=== PATIENT | female | born 1970 | race Caucasian/White ===

== ENCOUNTER → 2022-06-04 12:28 | Outpatient (CLI) | payer OTHER, SELFPAY ==
[2022-06-04 15:27] LABS: Free T3, Triiodothyronine Free 3.79 pg/mL (2.77-5.27); Free T4, Direct Thyroxine 0.81 ng/dL (0.78-2.19)
[2022-06-04 16:47] LABS: Progesterone, Total 2.59 ng/mL
[2022-06-05 18:39] LABS: Thyroid Stimulating Hormone < 0.015 uIU/mL (0.47-4.68)
[2022-06-09 13:17] LABS: Estradiol <5.0 pg/mL (.); Estriol,Serum <0.1 ng/mL (.); Estrone,Serum 13 pg/mL (.)
== END ==
PROVIDERS: PCP Massage Therapist; Referring Provider Massage Therapist; Visit Provider Massage Therapist
DX: N95.1 Menopausal and female climacteric states (principal); Z79.890 Hormone replacement therapy; E06.3 Autoimmune thyroiditis; G47.00 Insomnia, unspecified; R63.5 Abnormal weight gain
CPT/HCPCS: 36415; 82670; 82677; 82679; 84144; 84439; 84443; 84481

== ENCOUNTER → 2022-08-20 14:43 | Outpatient (CLI) | payer OTHER, SELFPAY ==
--- NOTE | 2022-08-20 15:22 | DI.ECHO.S_ITS ---
Interpretation Summary The ejection fraction is estimated to be 60-65%. Diastolic parameters suggest probable normal left ventricular diastolic function and normal filling pressures. The right ventricle is normal in size and function. There is mild mitral regurgitation. The aortic valve is bicuspid with moderate stenosis. There is mild tricuspid regurgitation. Pulmonary artery pressures cannot be estimated because of the lack of a measurable TR jet velocity. Procedure: A two-dimensional transthoracic echocardiogram with color flow and Doppler was performed. The study quality was technically adequate. There is no prior echocardiogram noted for this patient. The patient was in sinus rhythm with heart rates between 72-85 bpm during the exam. Left Ventricle: The left ventricle is normal in size and wall thickness. The ejection fraction is estimated to be 60-65%. Diastolic parameters suggest probable normal left ventricular diastolic function and normal filling pressures. Right Ventricle: The right ventricle is normal in size and function. Atria: The left atrial size is normal. Right atrial size is normal. There is no Doppler evidence for an interatrial shunt. Mitral Valve: The mitral valve is normal in structure and function. There is mild mitral regurgitation. Aortic Valve: The aortic valve is bicuspid. The aortic valve is moderately calcified. The peak aortic velocity is 3.2 m/sec. The aortic valve mean gradient is 25 mmHg. The calculated aortic valve area is 1.5 cm2. There is moderate aortic stenosis. No aortic regurgitation is present. Tricuspid Valve: The tricuspid valve is normal in structure and function. There is mild tricuspid regurgitation. Pulmonary artery pressures cannot be estimated because of the lack of a measurable TR jet velocity. Pulmonic Valve: The pulmonic valve leaflets are thin and pliable; valve motion is normal. There is trace pulmonic regurgitation. Great Vessels: The aortic root is normal size. The dimensions of the ascending aorta are normal. The IVC is of normal diameter and collapses greater than 50% with a sniff. This suggests a low right atrial pressure of 3 mm Hg. Pericardium/ Pleura There is no pericardial effusion. There is no pleural effusion. MMode/2D Measurements & Calculations LVIDd: 5.2 cm LVOT diam: 2.2 cm LVIDs: 3.2 cm Ao root diam: 3.0 cm FS: 39.1 % asc Aorta Diam: 3.5 cm EPSS: 0.72 cm Ao Arch Diam (Prox Trans): 2.6 cm IVSd: 0.94 cm LVPWd: 0.97 cm LV mishra. diameter/BSA (cm/m^2): 2.5 LV sys. diameter/BSA (cm/m^2): 1.5 LA A2 area: 18.5 cm2 RA long axis: 5.6 cm LA A4 area: 21.7 cm2 RA area: 18.4 cm2 LA length (vol): 5.9 cm RA vol: 51.4 ml LA vol: 57.7 ml RA : 24.3 ml/m2 LA vol index: 27.2 ml/m2 IVC diam: 1.8 cm RVD1 (basal): 3.2 cm RVD2 (mid): 2.9 cm TAPSE: 2.8 cm Doppler Measurements & Calculations Ao V2 max: 324.8 cm/sec LVOT Max Aries: 123.1 cm/sec Ao V2 mean: 216.2 cm/sec LV V1 max P.1 mmHg Ao max P.4 mmHg LV V1 VTI: 25.4 cm Ao mean P.7 mmHg RACHELL(I,D): 1.4 cm2 Ao V2 VTI: 68.4 cm RACHELL(V,D): 1.5 cm2 sev ratio: 0.37 RACHELL indexed to BSA (cm^2/m^2): 0.67 MV E max aries: 89.6 cm/sec PA V2 max: 92.0 cm/sec MV A max aries: 66.2 cm/sec PA V2 mean: 63.5 cm/sec MV E/A: 1.4 PA mean P.8 mmHg Med Peak E' Aries: 8.7 cm/sec PA pr(Accel): 39.6 mmHg E/E' med: 10.4 Lat Peak E' Aries: 11.6 cm/sec E/E' lat: 7.7 E/e' average: 9.0 MV dec time: 0.21 sec SV(LVOT): 97.3 ml Reading Physician:05:09 PM
== END ==
PROVIDERS: PCP Massage Therapist; Referring Provider Internal Medicine Cardiovascular Disease; Visit Provider Internal Medicine Cardiovascular Disease
DX: Q23.1 Congenital insufficiency of aortic valve (principal); I08.1 Rheumatic disorders of both mitral and tricuspid valves
CPT/HCPCS: 93306

== ENCOUNTER → 2022-11-28 09:42 | Outpatient (CLI) | payer OTHER, SELFPAY ==
[2022-11-28 10:58] LABS: Add Manual Diff / Slide Review NO; Basophils Absolute Auto 0 /uL (0-100); Basophils Percent Auto 0.9 % (0-2); Eosinophils Absolute Auto 100 /uL (0-450); Eosinophils Percent Auto 1.9 % (2-4); Hematocrit 39.4 % (36-46); Lymphocytes Absolute Auto 1700 /uL (1100-4500); Lymphocytes Percent Auto 34.8 % (25-40); Mean Corpuscular Hemoglobin 26.7 PG (26-34); Monocytes Absolute Auto 400 /uL (0-900); Monocytes Percent Auto 7.9 % (3-14); Neutrophils Absolute Auto 2600 /uL (1500-7000); Neutrophils Percent Auto 54.5 % (50-75); Platelet Count 280 X10^3/uL (150-400); Red Blood Cell Count 4.86 X10^6/uL (4.0-5.2); White Blood Cell Count 4.8 X10^3/uL (4.5-11.0)
[2022-11-28 11:07] LABS: Hemoglobin A1C% w Est Avg Glu 5.7 % (4.0-6.0)
[2022-11-28 11:31] LABS: Alanine Aminotransferase 35 IU/L (<35); Albumin 4.2 g/dL (3.5-5.0); Albumin Globulin Ratio 1.4 (1.0-2.8); Alkaline Phosphatase 88 U/L (38-126); Aspartate Aminotransferase 29 IU/L (14-36); BUN Creatinine Ratio 26.7 (6-22); Bilirubin Total 0.5 mg/dL (0.2-1.3); Blood Urea Nitrogen 12 mg/dL (7-17); Calcium 9.4 mg/dL (8.4-10.2); Carbon Dioxide 26 mmol/L (22-32); Chloride 105 mmol/L (98-107); Cholesterol 208 mg/dL (140-199); Estimated Glomerular Filt Rate > 60 mL/min (>60); Glucose 110 mg/dL (70-100); HDL Cholesterol 83 mg/dL (40-60); HEMOLYSIS < 15 (0-50); LDL Cholesterol Calculated 113 mg/dL (<100); Potassium 4.8 mmol/L (3.4-5.1); Progesterone, Total 1.23 ng/mL; Sodium 140 mmol/L (137-145); Total Protein 7.2 g/dL (6.3-8.2); Triglycerides 62 mg/dL (35-150)
[2022-11-28 11:47] LABS: Estradiol, Total 29.6 pg/mL
[2022-11-28 11:56] LABS: Iron 68 ug/dL (37-170)
[2022-11-28 12:02] LABS: Cortisol AM (Before 10AM) 4.44 ug/dL (4.46-22.7)
[2022-11-28 12:05] LABS: Percent Iron Saturation 20 % (15-50); Total Iron Binding Capacity 337 ug/dL (265-497)
[2022-11-28 12:06] LABS: Ferritin 102 ng/mL (11-264)
[2022-11-28 12:14] LABS: Free T3, Triiodothyronine Free 7.92 pg/mL (2.77-5.27); Free T4, Direct Thyroxine 0.85 ng/dL (0.78-2.19)
[2022-11-28 12:40] LABS: Thyroid Stimulating Hormone < 0.015 uIU/mL (0.47-4.68)
[2022-11-29 06:36] LABS: Thyroid Peroxidase Antibodies 64 IU/mL (0-34)
== END ==
PROVIDERS: PCP Massage Therapist; Referring Provider Massage Therapist; Visit Provider Massage Therapist
DX: E06.3 Autoimmune thyroiditis (principal); Z79.890 Hormone replacement therapy; Z00.01 Encounter for general adult medical examination with abnormal findings; E83.19 Other disorders of iron metabolism; R73.09 Other abnormal glucose
CPT/HCPCS: 36415; 80053; 80061; 82533; 82670; 82728; 83036; 83090; 83540; 83550; 84144; 84439; 84443; 84481; 85025; 86376

== ENCOUNTER → 2022-12-05 09:16 | Outpatient (CLI) | payer OTHER, SELFPAY ==
--- NOTE | 2022-12-05 09:18 | DI.MG.S_ITS ---
BILATERAL DIGITAL SCREENING MAMMOGRAM 3D/2D WITH CAD: 12/05/2022 CLINICAL: Routine screening. No prior exams were available for comparison. There are scattered areas of fibroglandular density in both breasts (category b / 25%-50% glandular tissue). Current study was also evaluated with a Computer Aided Detection (CAD) system. No significant masses, calcifications, or other findings are seen in either breast. IMPRESSION: NEGATIVE There is no mammographic evidence of malignancy. A 1 year screening mammogram is recommended. Based on the Tyrer Cuzick model (a risk assessment model) the patient's lifetime risk is 10.4% and her 10 year risk is 2.9%. According to the ACR, ACS, and NCCN guidelines, an annual breast MRI exam along with mammogram is recommended if the patient's lifetime risk is 20% or greater. This exam was interpreted at Station ID: [id number]. NOTE: For mammograms, a report in lay terms will be sent to the patient. Approximately 15% of breast malignancies will not be visualized mammographically. In the management of a palpable breast mass, a negative mammogram must not discourage biopsy of a clinically suspicious lesion. Electronically Signed By: Corey coates/aiden:12/07/2022 07:29:03 letter sent: Normal Exam ACR BI-RADS Category 1: Negative [id number]
== END ==
PROVIDERS: PCP Massage Therapist; Referring Provider Physician Assistant Medical; Visit Provider Physician Assistant Medical
DX: Z12.31 Encounter for screening mammogram for malignant neoplasm of breast (principal)
CPT/HCPCS: 77063; 77067

== ENCOUNTER → 2023-12-09 13:42 | Outpatient (CLI) | payer OTHER, SELFPAY ==
--- NOTE | 2023-12-09 13:45 | DI.ECHO.S_ITS ---
[facility]---------+ [facility] +---------+ : : [address] : : : : [id number] : : : : Phone: [phone]+ Echocardiogram Report + + :Name: GABRIELLE WANG Study Date: 12/09/2023 Height: 66 in : :[facility] ReadingLocation: Weight: 211 lb : : Gender: Female BSA: 2.0 m2 : :: 1970 Age: 53 yrs BP: 160/101 mmHg: :Reason For Study: BICUSPID AORTIC VALVE : :Ordering Physician: VANESSA, : :KAMLA Dunlap Performed By: Christine Hooper : :Referring: KAMLA LAMA : + + Interpretation Summary The ejection fraction is estimated to be 60-65%. Diastolic parameters suggest probable normal left ventricular diastolic function and normal filling pressures. The right ventricle is normal in size and function. The aortic valve is bicuspid. There is moderate aortic stenosis. There is mild aortic regurgitation. Pulmonary artery pressures cannot be estimated because of the lack of a measurable TR jet velocity but the IVC suggests a CVP of around 3 mmHg. Compared to the prior study dated 08/20/2022, the aortic valve gradient has increased and RACHELL decreased. Procedure: A two-dimensional transthoracic echocardiogram with color flow and Doppler was performed. The study quality was technically adequate. Comparison is made with the echocardiogram of 08/20/2022. The patient was in sinus rhythm with heart rates between 77-83 bpm during the exam. Left Ventricle: The left ventricle is normal in size and wall thickness. The ejection fraction is estimated to be 60-65%. Diastolic parameters suggest probable normal left ventricular diastolic function and normal filling pressures. Right Ventricle: The right ventricle is normal in size and function. Atria: The left atrial size is normal. Right atrial size is normal. There is no Doppler evidence for an interatrial shunt. Mitral Valve: The mitral valve is normal in structure and function. There is trace mitral regurgitation. Aortic Valve: The aortic valve is bicuspid. The aortic valve is moderately calcified. The peak aortic velocity is 3.6 m/sec. The aortic valve mean gradient is 32 mmHg. The calculated aortic valve area is 1.1 cm2. There is moderate aortic stenosis. There is mild aortic regurgitation. Tricuspid Valve: The tricuspid valve is normal in structure and function. There is trace tricuspid regurgitation. Pulmonary artery pressures cannot be estimated because of the lack of a measurable TR jet velocity but the IVC suggests a CVP of around 3 mmHg. Pulmonic Valve: The pulmonic valve leaflets are thin and pliable; valve motion is normal. There is trace pulmonic regurgitation. Great Vessels: The aortic root is normal size. The dimensions of the ascending aorta are normal. The IVC is of normal diameter and collapses greater than 50% with a sniff. This suggests a low right atrial pressure of 3 mm Hg. Pericardium/ Pleura There is no pericardial effusion. There is no pleural effusion. MMode/2D Measurements & Calculations LVIDd: 4.7 cm LVOT diam: 2.1 cm LVIDs: 3.1 cm Ao root diam: 3.1 cm FS: 33.4 % asc Aorta Diam: 3.0 cm EPSS: 0.55 cm Ao Arch Diam (Prox Trans): 2.6 cm IVSd: 1.1 cm LVPWd: 0.90 cm LV mishra. diameter/BSA (cm/m^2): 2.3 LV sys. diameter/BSA (cm/m^2): 1.5 LA A2 area: 20.1 cm2 RA long axis: 4.8 cm LA A4 area: 16.8 cm2 RA area: 14.6 cm2 LA length (vol): 5.3 cm RA vol: 37.8 ml LA vol: 54.0 ml RA : 18.5 ml/m2 LA vol index: 26.4 ml/m2 IVC diam: 1.8 cm RVD1 (basal): 3.6 cm RVD2 (mid): 2.9 cm TAPSE: 2.5 cm Doppler Measurements & Calculations Ao V2 max: 364.4 cm/sec LVOT Max Aries: 116.7 cm/sec Ao V2 mean: 256.6 cm/sec LV V1 max P.5 mmHg Ao max P.8 mmHg LV V1 VTI: 24.8 cm Ao mean P.1 mmHg RACHELL(I,D): 1.1 cm2 Ao V2 VTI: 78.6 cm RACHELL(V,D): 1.1 cm2 sev ratio: 0.32 RACHELL indexed to BSA (cm^2/m^2): 0.55 MV E max aries: 80.6 cm/sec PA V2 max: 86.1 cm/sec MV A max aries: 79.0 cm/sec PA V2 mean: 60.0 cm/sec MV E/A: 1.0 PA mean P.6 mmHg Med Peak E' Aries: 8.1 cm/sec PA pr(Accel): 37.9 mmHg E/E' med: 10.0 Lat Peak E' Aries: 11.3 cm/sec E/E' lat: 7.1 E/e' average: 8.6 MV dec time: 0.23 sec SV(LVOT): 87.9 ml Reading Physician:04:28 PM
== END ==
PROVIDERS: PCP Massage Therapist; Referring Provider Internal Medicine Cardiovascular Disease; Visit Provider Internal Medicine Cardiovascular Disease
DX: Q23.1 Congenital insufficiency of aortic valve (principal)
CPT/HCPCS: 93306

== ENCOUNTER → 2024-03-16 06:58 | Outpatient (CLI) | payer OTHER, SELFPAY ==
--- NOTE | 2024-03-16 06:59 | DI.US.S_ITS ---
PROCEDURE: US PELVIC COMPLETE INDICATIONS: assess for structural anomaly, new PMB TECHNIQUE: Real-time scanning was performed of the pelvic organs, with image documentation. Additional endovaginal scanning was necessary due to incomplete visualization of the adnexal and endometrial structures by transabdominal scanning. COMPARISON: None. FINDINGS: Uterus: Uterus is anteverted and normal in size at 9.8 x 5.9 x 6.9 cm. The myometrium is heterogeneous. The endometrium measures 4 mm combined thickness. Uterine fibroids including a right anterior subserosal fibroid measuring 3.2 centimeters, a mid posterior intramural fibroid measuring 5.3 centimeters in a left anterior subserosal fibroid measuring 3.2 centimeters. Ovaries: The ovaries are not seen. No adnexal masses. Other: No pathologic free abdominal or pelvic fluid. IMPRESSION: The endometrium is normal in thickness. Leiomyomatous uterus. The ovaries are not seen. We strive to produce accurate, complete, and clear reports of imaging services. To assist us in improving patient care, this report was composed using standard report templates and voice recognition software. Therefore, it may contain abnormal punctuation, insertions and/or omissions. Occasional wrong-word or sound-alike substitutions may occur. Though we review the report and make efforts to correct it, we do recommend that the report be read carefully in proper context to recognize any text inaccuracies. Dictated by: Prashant Alves M.D. on 03/16/2024 at 8:49 Approved by: Prashant Alves M.D. on 03/16/2024 at 8:52
== END ==
LOC: US 06:58
PROVIDERS: PCP Massage Therapist; Referring Provider Obstetrics & Gynecology; Visit Provider Obstetrics & Gynecology
DX: N95.0 Postmenopausal bleeding (principal); D25.1 Intramural leiomyoma of uterus; D25.2 Subserosal leiomyoma of uterus
CPT/HCPCS: 76856

== ENCOUNTER 2024-03-18 22:31 | Inpatient (IN) | payer OTHER, SELFPAY ==
[2024-03-18 22:55] VITALS: BP 147/86; PULSE 116; RESP 16; TEMP 36.9; O2SAT 96; BMI 31.6
[2024-03-18 23:01] LABS: Add Manual Diff / Slide Review NO; Basophils Absolute Auto 0 /uL (0-100); Basophils Percent Auto 0.4 % (0-2); Eosinophils Absolute Auto 200 /uL (0-450); Eosinophils Percent Auto 1.9 % (2-4); Hemoglobin 10.4 g/dL (12.0-16.0); Lymphocytes Absolute Auto 2700 /uL (1100-4500); Lymphocytes Percent Auto 31.3 % (25-40); Mean Corpuscular HGB Conc 34.6 % (30-36); Mean Corpuscular Hemoglobin 27.5 PG (26-34); Mean Corpuscular Volume 79.3 fL (80-100); Monocytes Absolute Auto 800 /uL (0-900); Monocytes Percent Auto 9.2 % (3-14); Neutrophils Absolute Auto 5000 /uL (1500-7000); Neutrophils Percent Auto 57.2 % (50-75); Platelet Count 279 X10^3/uL (150-400); Red Blood Cell Count 3.79 X10^6/uL (4.0-5.2); White Blood Cell Count 8.6 X10^3/uL (4.5-11.0)
[2024-03-18 23:02] LABS: INR 1.1 (0.9-1.3)
[2024-03-18] MEDS: PANTOPRAZOLE 40 MG VIAL 80 MG IV (23:03)
--- NOTE | 2024-03-18 23:03 | ED.GENADULT ---
HPI - General Adult General Chief complaint: Abdominal Pain Stated complaint: bloody diarrhea Time Seen by Provider: 03/18/24 22:43 Source: patient Mode of arrival: Ambulatory Limitations: no limitations History of Present Illness HPI narrative: 53-year-old female. Has a history Sebastien's. Is on thyroid replacement medication. 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 Has also had uterine fibroids removed. Not on anticoagulation although has used anti-inflammatories for the past day or so. Is here for evaluation of less than 8 hours of multiple episodes of bright red blood per rectum. No pain with bowel movements. No abdominal pain. No fevers. No blood in her urine. No vaginal bleeding. No chest pain or shortness of breath. Has not had a colonoscopy in her life up to this point. Related Data Home Medications Medication Instructions Recorded Confirmed cortisol Records Manager PO 05/07/22 10/07/23 estradiol 0.0375 mg/24 hr 1 patch transdermal 2XW 05/07/22 10/07/23 semiweekly transdermal patch (Penny) lactobacillus combination no.9 4 4,000 mmu cells PO DAILY 05/07/22 10/07/23 billion cell capsule (Adult 50 Plus Probiotic) melatonin 3 mg/4 mL oral drops 0.5 mg PO BEDTIME PRN 05/07/22 05/07/22 progesterone micronized 100 mg 100 mg PO QAM 05/07/22 05/07/22 capsule thyroid (pork) 120 mg tablet 120 mg PO DAILY 05/07/22 10/07/23 ([place] Thyroid) thyroid (pork) 15 mg tablet 15 mg PO DAILY 05/07/22 10/07/23 ([place] Thyroid) liothyronine 5 mcg tablet 15 mcg PO DAILY 10/07/23 10/07/23 liothyronine 5 mcg tablet 15 mcg PO DAILY 10/07/23 10/07/23 semaglutide 1 mg/dose (2 mg/1.5 1 mg SUBCUT ONCE 10/07/23 10/07/23 mL) subcutaneous pen injector Allergies Allergy/AdvReac Type Severity Reaction Status Date / Time azithromycin Allergy Swelling Verified 03/08/24 10:43 of Lip/Tongue/Throat Penicillins Allergy Rash Verified 03/08/24 10:43 acetaminophen [From Percocet] AdvReac Severe Difficulty Verified 03/08/24 10:43 Breathing ciprofloxacin [From Cipro] AdvReac Severe Rash Verified 03/08/24 10:43 diltiazem [From Cartia XT] AdvReac Severe swelling Verified 03/08/24 10:43 of hand and feet hydrochlorothiazide AdvReac Severe Abdominal Verified 03/08/24 10:43 Pain oxycodone [From Percocet] AdvReac Severe Difficulty Verified 03/08/24 10:43 Breathing sulfamethoxazole AdvReac Severe GI upset Verified 03/08/24 10:43 [From Bactrim] trimethoprim [From Bactrim] AdvReac Severe GI upset Verified 03/08/24 10:43 losartan AdvReac Cramping Verified 03/08/24 10:43 of the Muscles Review of Systems Review of Systems Narrative: See HPI Patient History Medical History Postmenopausal bleeding ASCUS with positive high risk HPV Sleep apnea 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 Bicuspid aortic valve Social History education level: other (graduate degree, chiropractor) occupational status: employed Smoking Status: Former smoker Smoking Status: Former smoker Exam Initial Vital Signs Initial Vital Signs: Vital Signs Temperature 98.5 F 03/18/24 22:55 Pulse Rate 116 H 03/18/24 22:55 Respiratory Rate 16 03/18/24 22:55 Blood Pressure 147/86 H 03/18/24 22:55 Pulse Oximetry 96 03/18/24 22:55 Oxygen Delivery Method Room Air 03/18/24 22:55 Const General: cooperative, comfortable and No ill appearing [facility] Head: normal to inspection and normocephalic Resp Effort & Inspection: normal respiratory effort Auscultation: clear to auscultation bilaterally Cardio Rate: tachycardic Rhythm: regular rhythm GI Inspection: normal to inspection and non-distended Palpation: soft, No firm, No guarding and No tender Skin General: no rashes or lesions noted Neuro General: patient alert, patient awake, patient oriented x3 and moves all extremities Extrem General: normal to inspection Course Orders Ordered: ED Orders 03/18/24 22:45 GI Panel (Film Array) Stat 03/18/24 22:46 Complete Blood Count AUTO DIFF Stat Comprehensive Metabolic Panel Stat PTT Partial Thromboplastin Duy Stat Prothrombin Time INR Stat 03/18/24 22:50 EKG-12 Lead Stat 03/18/24 23:11 Type and Screen Stat 03/19/24 01:15 Hemoglobin and Hematocrit Stat 03/19/24 01:44 Consult to General Surgery Stat Non-Formulary Medication (Thyroid (Pork) [[place] Thyroid]) 120 mg PO DAILY MITZI Ondansetron HCl (Ondansetron 4 Mg/2 Ml Inj) 4 mg IV NOW PRN PRN Reason: Nausea And Vomiting Ondansetron HCl (Ondansetron 4 Mg Odt) 4 mg SL NOW PRN PRN Reason: Nausea And Vomiting Thyroid (Thyroid, Pork 30 Mg Tablet) 15 mg PO DAILY MITZI Discontinued Medications Pantoprazole Sodium (Pantoprazole 40 Mg Vial) 80 mg IV NOW ONE Stop: 03/18/24 22:51 Last Admin: 03/18/24 23:03 Dose: 80 mg Documented By: EZIO Vital Signs Vital signs: Vital Signs - 8 hr 03/18/24 22:55 03/18/24 23:10 03/18/24 23:30 Temperature 98.5 F Pulse Rate 116 H 91 H Respiratory Rate 16 12 Blood Pressure 147/86 H 133/73 Pulse Oximetry 96 97 Oxygen Delivery Method Room Air 03/18/24 23:30 03/19/24 00:00 03/19/24 00:00 Temperature Pulse Rate 84 85 Respiratory Rate 15 17 Blood Pressure 120/75 Pulse Oximetry 97 98 Oxygen Delivery Method 03/19/24 00:30 03/19/24 01:00 Temperature Pulse Rate 87 90 Respiratory Rate 17 19 Blood Pressure Pulse Oximetry 98 97 Oxygen Delivery Method Medical Decision Making Lab Data Lab results reviewed: Yes I reviewed the patient's lab results. 03/19/24 01:15 03/18/24 22:46 Labs: Lab Results 03/18/24 03/18/24 03/18/24 Range/Units 22:45 22:46 23:11 WBC 8.6 (4.5-11.0) X10^3/uL RBC 3.79 L (4.0-5.2) X10^6/uL Hgb 10.4 L (12.0-16.0) g/dL Hct 30.0 L (36-46) % MCV 79.3 L (80-100) fL MCH 27.5 (26-34) PG MCHC 34.6 (30-36) % RDW 13.0 (11.6-14.8) % Plt Count 279 (150-400) X10^3/uL Neut % (Auto) 57.2 (50-75) % Lymph % (Auto) 31.3 (25-40) % [place] % (Auto) 9.2 (3-14) % Eos % (Auto) 1.9 L (2-4) % Baso % (Auto) 0.4 (0-2) % Neut # (Auto) 5000 (7417-3373) /uL Lymph # (Auto) 2700 (7688-0484) /uL [place] # (Auto) 800 (0-900) /uL Eos # (Auto) 200 (0-450) /uL Baso # (Auto) 0 (0-100) /uL PT 13.0 H (9.4-12.5) SECONDS INR 1.1 (0.9-1.3) APTT 34 (25.1-36.5) SECONDS Sodium 141 (137-145) mmol/L Potassium 4.0 (3.4-5.1) mmol/L Chloride 111 H (98-107) mmol/L Carbon Dioxide 26 (22-32) mmol/L BUN 18 H (7-17) mg/dL Creatinine 0.55 (0.52-1.04) mg/dL Estimated GFR > 60 (>60) mL/min BUN/Creatinine Ratio 32.7 H (6-22) Glucose 132 H (70-100) mg/dL Calcium 8.4 (8.4-10.2) mg/dL Total Bilirubin 0.4 (0.2-1.3) mg/dL AST 20 (14-36) IU/L ALT 19 (<35) IU/L Alkaline Phosphatase 71 (38-126) U/L Total Protein 6.3 (6.3-8.2) g/dL Albumin 3.8 (3.5-5.0) g/dL Globulin 2.5 (1.7-4.1) g/dL Albumin/Globulin Ratio 1.5 (1.0-2.8) Stl C. cayetanensis PCR Not detected (Not Detect) Stool Rotavirus (PCR) Not detected (Not Detect) Stool Adenovirus (PCR) Not detected (Not Detect) Stool Astrovirus (PCR) Not detected (Not Detect) Stool Cryptosporidium PCR Not detected (Not Detect) Stl E.coli Shiga Tox PCR Not detected (Not Detect) St Sh/Enteroin Ecoli PCR Not detected (Not Detect) Stl Enterotoxigenic E PCR Not detected (Not Detect) Stool EPEC (PCR) Not detected (Not Detect) Stl E. histolytica PCR Not detected (Not Detect) Stool Giardia Lamblia PCR Not detected (Not Detect) Stool Sapovirus (PCR) Not detected (Not Detect) Stl P. shigelloides PCR Not detected (Not Detect) St Y.enterocolitica PCR Not detected (Not Detect) Stool Vibrio (PCR) Not detected (Not Detect) Stl Vibrio cholerae PCR Not detected (Not Detect) Stl Enteroaggr Ecoli PCR Not detected (Not Detect) Stl Norovirus GI/GII PCR Not detected (Not Detect) Campylobacter (PCR) Not detected (Not Detect) C. difficile Tox (PCR) Not detected (Not Detect) Salmonella (PCR) Not detected (Not Detect) Blood Type A Negative Antibody Screen Negative 03/19/24 Range/Units 01:15 WBC (4.5-11.0) X10^3/uL RBC (4.0-5.2) X10^6/uL Hgb 8.7 L (12.0-16.0) g/dL Hct 25.0 L (36-46) % MCV (80-100) fL MCH (26-34) PG MCHC (30-36) % RDW (11.6-14.8) % Plt Count (150-400) X10^3/uL Neut % (Auto) (50-75) % Lymph % (Auto) (25-40) % [place] % (Auto) (3-14) % Eos % (Auto) (2-4) % Baso % (Auto) (0-2) % Neut # (Auto) (0767-0271) /uL Lymph # (Auto) (4270-8677) /uL [place] # (Auto) (0-900) /uL Eos # (Auto) (0-450) /uL Baso # (Auto) (0-100) /uL PT (9.4-12.5) SECONDS INR (0.9-1.3) APTT (25.1-36.5) SECONDS Sodium (137-145) mmol/L Potassium (3.4-5.1) mmol/L Chloride (98-107) mmol/L Carbon Dioxide (22-32) mmol/L BUN (7-17) mg/dL Creatinine (0.52-1.04) mg/dL Estimated GFR (>60) mL/min BUN/Creatinine Ratio (6-22) Glucose (70-100) mg/dL Calcium (8.4-10.2) mg/dL Total Bilirubin (0.2-1.3) mg/dL AST (14-36) IU/L ALT (<35) IU/L Alkaline Phosphatase (38-126) U/L Total Protein (6.3-8.2) g/dL Albumin (3.5-5.0) g/dL Globulin (1.7-4.1) g/dL Albumin/Globulin Ratio (1.0-2.8) Stl C. cayetanensis PCR (Not Detect) Stool Rotavirus (PCR) (Not Detect) Stool Adenovirus (PCR) (Not Detect) Stool Astrovirus (PCR) (Not Detect) Stool Cryptosporidium PCR (Not Detect) Stl E.coli Shiga Tox PCR (Not Detect) St Sh/Enteroin Ecoli PCR (Not Detect) Stl Enterotoxigenic E PCR (Not Detect) Stool EPEC (PCR) (Not Detect) Stl E. histolytica PCR (Not Detect) Stool Giardia Lamblia PCR (Not Detect) Stool Sapovirus (PCR) (Not Detect) Stl P. shigelloides PCR (Not Detect) St Y.enterocolitica PCR (Not Detect) Stool Vibrio (PCR) (Not Detect) Stl Vibrio cholerae PCR (Not Detect) Stl Enteroaggr Ecoli PCR (Not Detect) Stl Norovirus GI/GII PCR (Not Detect) Campylobacter (PCR) (Not Detect) C. difficile Tox (PCR) (Not Detect) Salmonella (PCR) (Not Detect) Blood Type Antibody Screen ECG Data Attestation: I personally reviewed and interpreted this ECG as follows: Interpretation: Sinus rhythm Ventricular rate 91 Normal axis Normal QRS Normal QTC No ST T wave changes MDM Narrative Medical decision making narrative: No abdominal pain. Initially tachycardic upon arrival but this is when she exerts herself. She was also very lightheaded. Has had multiple episodes of bright red blood per rectum. Not on anticoagulation. H&H has dropped with a 2 hour repeat. No signs of any infection. Discussed the case with Dr. Gonzalez on-call for General surgery who asked that the patient be admitted to the medicine service and she would consult. Clear liquid diet for now. I then discussed the case with hospitalist on-call who will admit. Discussed the need for admission with the patient who expressed understanding and agreement with plan. Discharge Plan Departure Patient Disposition: Admitted as Observation Clinical Impression: BRBPR (bright red blood per rectum) Admit Date/Time: 03/19/24 01:50 Admit Provider: Nitin Lakhani
[2024-03-18 23:04] LABS: PTT Partial Thromboplastin Tim 34 SECONDS (25.1-36.5)
[2024-03-18 23:06] LABS: Alanine Aminotransferase 19 IU/L (<35); Albumin 3.8 g/dL (3.5-5.0); Albumin Globulin Ratio 1.5 (1.0-2.8); Alkaline Phosphatase 71 U/L (38-126); Aspartate Aminotransferase 20 IU/L (14-36); BUN Creatinine Ratio 32.7 (6-22); Bilirubin Total 0.4 mg/dL (0.2-1.3); Blood Urea Nitrogen 18 mg/dL (7-17); Calcium 8.4 mg/dL (8.4-10.2); Carbon Dioxide 26 mmol/L (22-32); Chloride 111 mmol/L (98-107); Estimated Glomerular Filt Rate > 60 mL/min (>60); Globulin 2.5 g/dL (1.7-4.1); Glucose 132 mg/dL (70-100); HEMOLYSIS < 15 (0-50); Sodium 141 mmol/L (137-145); Total Protein 6.3 g/dL (6.3-8.2)
[2024-03-18 23:10] VITALS: PULSE 91; RESP 12; O2SAT 97
[2024-03-18 23:30] VITALS: BP 133/73; PULSE 84; RESP 15; O2SAT 97
[2024-03-19] VITALS (13 sets, daily range): BP systolic 99–132; BP diastolic 61–80; PULSE 80–105; RESP 16–19; TEMP 36–37; O2SAT 96–98; BMI 31.4
[2024-03-19 00:45] LABS: Adenovirus F 40/41 Not Detected (Not Detect); Astrovirus Not Detected (Not Detect); Campylobacter Not Detected (Not Detect); Clostridium difficile toxin AB Not Detected (Not Detect); Cryptosporidium Not Detected (Not Detect); Cyclospora cayetanensis Not Detected (Not Detect); Entamoeba histolytica Not Detected (Not Detect); Enteroaggregative E.coli Not Detected (Not Detect); Enteropathogenic E.coli Not Detected (Not Detect); Enterotoxigenic E.coli It/st Not Detected (Not Detect); Giardia lamblia Not Detected (Not Detect); Norovirus GI/GII Not Detected (Not Detect); Plesiomonsa shigelloides Not Detected (Not Detect); Rotavirus A Not Detected (Not Detect); Salmonella Not Detected (Not Detect); Sapovirus Not Detected (Not Detect); Shiga-like toxin-prod E.coli Not Detected (Not Detect); Shigella/Enteroinvasive E.coli Not Detected (Not Detect); Vibrio Not Detected (Not Detect); Vibrio cholerae Not Detected (Not Detect); Yersinia enterocolitica Not Detected (Not Detect)
[2024-03-19 01:34] LABS: Hemoglobin 8.7 g/dL (12.0-16.0)
[2024-03-19] MEDS: SODIUM CHLORIDE 0.9% 1,000 ML 100 ML IV ×3 (03:00→23:37)
--- NOTE | 2024-03-19 03:32 | PM.HP.1 ---
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 Reported feeling dizzy and dehydrated. Denies any nausea, vomiting, fever, abdominal pain or dysuria. She was using ibuprofen in the last several days for low back pain and reports some heartburn in the past. Denies any colonoscopy and EGD in the past but scheduled for colonoscopy in June. Laboratory shows WBC 8.6, initial H&H 10.4/30 and 2 hours later 8.7/25, platelets 279, INR 1.1, glucose 132, calcium 8.4, LFT normal. Recent pelvic ultrasound shows leiomyomatosis uterus. Surgery was consulted over the phone and recommended liquid diet and will see the patient in the morning. 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 Bicuspid aortic valve Social History household members: friend(s) education level: other (graduate degree, chiropractor) occupational status: employed Smoking Status: Former smoker Meds Home Medications and Allergies Home Medications Medication Instructions Recorded Confirmed Type estradiol 0.0375 mg/24 hr 1 patch transdermal 2XW 05/07/22 03/19/24 History semiweekly transdermal patch (Penny) melatonin 3 mg/4 mL oral drops 0.5 mg PO BEDTIME PRN insomnia 05/07/22 03/19/24 History progesterone micronized 100 mg 100 mg PO QAM 05/07/22 03/19/24 History capsule thyroid (pork) 120 mg tablet 120 mg PO DAILY 05/07/22 03/19/24 History (Tully Thyroid) thyroid (pork) 15 mg tablet 15 mg PO DAILY 05/07/22 03/19/24 History (Tully Thyroid) liothyronine 5 mcg tablet 15 mcg PO DAILY 10/07/23 03/19/24 History semaglutide 1 mg/dose (2 mg/1.5 1 mg SUBCUT ONCE 10/07/23 03/19/24 History mL) subcutaneous pen injector Allergies Allergy/AdvReac Type Severity Reaction Status Date / Time azithromycin Allergy Swelling Verified 03/08/24 10:43 of Lip/Tongue/Throat Penicillins Allergy Rash Verified 03/08/24 10:43 acetaminophen [From Percocet] AdvReac Severe Difficulty Verified 03/08/24 10:43 Breathing ciprofloxacin [From Cipro] AdvReac Severe Rash Verified 03/08/24 10:43 diltiazem [From Cartia XT] AdvReac Severe swelling Verified 03/08/24 10:43 of hand and feet hydrochlorothiazide AdvReac Severe Abdominal Verified 03/08/24 10:43 Pain oxycodone [From Percocet] AdvReac Severe Difficulty Verified 03/08/24 10:43 Breathing sulfamethoxazole AdvReac Severe GI upset Verified 03/08/24 10:43 [From Bactrim] trimethoprim [From Bactrim] AdvReac Severe GI upset Verified 03/08/24 10:43 losartan AdvReac Cramping Verified 03/08/24 10:43 of the Muscles Review of Systems Review of Systems ROS: Yes All systems reviewed with the patient and are negative except as otherwise documented Constitutional Constitutional: Reports as per HPI and Reports system reviewed and no additional complaints, except as documented Eyes Eyes: Reports as per HPI and Reports system reviewed and no additional complaints, except as documented ENT Ears, Nose, Mouth, and Throat: Yes as per HPI and Yes system reviewed and no additional complaints, except as documented Cardiovascular Cardiovascular: Reports system reviewed and no additional complaints, except as documented Respiratory Respiratory: Reports system reviewed and no additional complaints, except as documented Gastrointestinal Gastrointestinal: Reports system reviewed and no additional complaints, except as documented Genitourinary Genitourinary: Reports system reviewed and no additional complaints, except as documented Musculoskeletal Musculoskeletal: Reports system reviewed and no additional complaints, except as documented Neurologic Neurologic: Reports system reviewed and no additional complaints, except as documented Psychiatric Psychiatric: Reports system reviewed and no additional complaints, except as documented Exam Vital Signs (past 8 hours): - 03/18/24 22:55 03/18/24 23:10 03/18/24 23:30 Temperature 98.5 F Pulse Rate 116 H 91 H Respiratory Rate 16 12 Blood Pressure 147/86 H 133/73 Pulse Oximetry 96 97 Oxygen Delivery Method Room Air Oxygen Flow Rate 03/18/24 23:30 03/19/24 00:00 03/19/24 00:00 Temperature Pulse Rate 84 85 Respiratory Rate 15 17 Blood Pressure 120/75 Pulse Oximetry 97 98 Oxygen Delivery Method Oxygen Flow Rate 03/19/24 00:30 03/19/24 01:00 03/19/24 02:29 Temperature 96.8 F L Pulse Rate 87 90 80 Respiratory Rate 17 19 16 Blood Pressure 107/65 Pulse Oximetry 98 97 98 Oxygen Delivery Method Oxygen Flow Rate 0 03/19/24 03:09 Temperature Pulse Rate Respiratory Rate Blood Pressure Pulse Oximetry Oxygen Delivery Method Room Air Oxygen Flow Rate Oxygen Delivery Method Room Air Oxygen Flow Rate 0 Const General: cooperative, comfortable and well developed Orientation: alert and oriented x3 HENMT Head: normal to inspection, normocephalic and atraumatic Face and sinus: normal facial exam Mouth: oral mucosae normal and moist mucous membranes Throat: posterior oropharynx normal Eyes General: appearance normal, both eyes and all related structures Pupils: PERRL EOM: EOM intact bilaterally Neck Neck: normal visual inspection and full ROM Chest Chest: normal inspection of the chest Resp Effort & Inspection: normal respiratory effort and able to speak in complete sentences Auscultation: clear to auscultation bilaterally Cardio Palpation: normal PMI Rate: regular rate Rhythm: regular rhythm Heart Sounds: S1 normal and S2 normal GI Inspection: normal to inspection Palpation: soft and no hepatosplenomegaly Auscultation: normal bowel sounds Skin General: no rashes or lesions noted Lesions: no lesions Rashes: no rashes Trauma: no lacerations or abrasions Neuro General: patient alert, patient awake, patient oriented x3 and no focal motor deficits Cranial Nerves: CN's II-XI intact bilaterally Cognition: normal cognition Speech: speech normal Gait: normal gait Motor: muscle tone normal throughout Sensory Exam: no sensory deficits noted Extrem General: full ROM and no calf tenderness Psych Appearance: grossly normal Mental Status: mental status grossly normal Speech and Movement: speech and movement normal Objective Labs 03/19/24 01:15 03/18/24 22:46 Labs: Laboratory Results - last 24 hr 03/18/24 03/18/24 03/18/24 22:45 22:46 23:11 WBC 8.6 RBC 3.79 L Hgb 10.4 L Hct 30.0 L MCV 79.3 L MCH 27.5 MCHC 34.6 RDW 13.0 Plt Count 279 Neut % (Auto) 57.2 Lymph % (Auto) 31.3 [place] % (Auto) 9.2 Eos % (Auto) 1.9 L Baso % (Auto) 0.4 Neut # (Auto) 5000 Lymph # (Auto) 2700 [place] # (Auto) 800 Eos # (Auto) 200 Baso # (Auto) 0 PT 13.0 H INR 1.1 APTT 34 Sodium 141 Potassium 4.0 Chloride 111 H Carbon Dioxide 26 BUN 18 H Creatinine 0.55 Estimated GFR > 60 BUN/Creatinine Ratio 32.7 H Glucose 132 H Calcium 8.4 Total Bilirubin 0.4 AST 20 ALT 19 Alkaline Phosphatase 71 Total Protein 6.3 Albumin 3.8 Globulin 2.5 Albumin/Globulin Ratio 1.5 Stl C. cayetanensis PCR Not detected Stool Rotavirus (PCR) Not detected Stool Adenovirus (PCR) Not detected Stool Astrovirus (PCR) Not detected Stool Cryptosporidium PCR Not detected Stl E.coli Shiga Tox PCR Not detected St Sh/Enteroin Ecoli PCR Not detected Stl Enterotoxigenic E PCR Not detected Stool EPEC (PCR) Not detected Stl E. histolytica PCR Not detected Stool Giardia Lamblia PCR Not detected Stool Sapovirus (PCR) Not detected Stl P. shigelloides PCR Not detected St Y.enterocolitica PCR Not detected Stool Vibrio (PCR) Not detected Stl Vibrio cholerae PCR Not detected Stl Enteroaggr Ecoli PCR Not detected Stl Norovirus GI/GII PCR Not detected Campylobacter (PCR) Not detected C. difficile Tox (PCR) Not detected Salmonella (PCR) Not detected Blood Type A Negative Antibody Screen Negative 03/19/24 01:15 WBC RBC Hgb 8.7 L Hct 25.0 L MCV MCH MCHC RDW Plt Count Neut % (Auto) Lymph % (Auto) [place] % (Auto) Eos % (Auto) Baso % (Auto) Neut # (Auto) Lymph # (Auto) [place] # (Auto) Eos # (Auto) Baso # (Auto) PT INR APTT Sodium Potassium Chloride Carbon Dioxide BUN Creatinine Estimated GFR BUN/Creatinine Ratio Glucose Calcium Total Bilirubin AST ALT Alkaline Phosphatase Total Protein Albumin Globulin Albumin/Globulin Ratio Stl C. cayetanensis PCR Stool Rotavirus (PCR) Stool Adenovirus (PCR) Stool Astrovirus (PCR) Stool Cryptosporidium PCR Stl E.coli Shiga Tox PCR St Sh/Enteroin Ecoli PCR Stl Enterotoxigenic E PCR Stool EPEC (PCR) Stl E. histolytica PCR Stool Giardia Lamblia PCR Stool Sapovirus (PCR) Stl P. shigelloides PCR St Y.enterocolitica PCR Stool Vibrio (PCR) Stl Vibrio cholerae PCR Stl Enteroaggr Ecoli PCR Stl Norovirus GI/GII PCR Campylobacter (PCR) C. difficile Tox (PCR) Salmonella (PCR) Blood Type Antibody Screen Assessment & Plan Assessment & Plan narrative: Acute GI bleeding with acute blood loss anemia. -Monitor H and H every 4-6 hours; will transfuse depending on dropping hemoglobin and hematocrit and hemodynamic status. -start Protonix 40 mg IV twice a day. -Keep patient liquid diet -IV fluids, antiemetics as needed -Monitor hemodynamics -Surgery consulted. Endoscopic evaluation of upper GI tract, as well as possibly colonoscopy would be necessary in this patient with high risk of gastrointestinal bleed. -Patient to get off any antiplatelet agent like aspirin, Plavix or NSAIDs. Obstructive apnea. Start BiPAP at night with home settings. Sebastien thyroiditis. Restart thyroid supplement. Time Spent With Patient Time with patient: 50 to 69 minutes with 50% spent counseling/coordinating care Quality VTE Deep Vein Thrombosis/Pulmonary Embolism Present on Admission: No MIPS - Admit I confirm the patient?s Advance Care Plan is present, Code status is documented, Surrogate decision maker is in patient?s record [If Yes, STOP here]: Yes MIPS - Meds 'Current medications' to include all prescriptions, [id number] products, herbals, cannabis/cannabidiol products, and vitamin/mineral/dietary (nutritional) supplements. I have utilized all available resources to obtain, update, or review the patient?s current medications. [If Yes, STOP here]: Yes
[2024-03-19 04:04] LABS: Bacteria Urine None Seen; Culture Indicated Urine Cult Not Indicated; RBC Urine None Seen (0-5/HPF); Squamous Epithelial Cell Urine 0-1 /HPF (0-5/HPF); Urine Volume 10mL (spun); WBC Urine None Seen (0-5/HPF)
[2024-03-19] MEDS: THYROID, PORK 30 MG TABLET 135 MG PO (06:53)
--- NOTE | 2024-03-19 08:06 | P.HP_ITS ---
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 Reported feeling dizzy and dehydrated. Denies any nausea, vomiting, fever, abdominal pain or dysuria. She was using ibuprofen in the last several days for low back pain and reports some heartburn in the past. Denies any colonoscopy and EGD in the past but scheduled for colonoscopy in June. Laboratory shows WBC 8.6, initial H&H 10.4/30 and 2 hours later 8.7/25, platelets 279, INR 1.1, glucose 132, calcium 8.4, LFT normal. Recent pelvic ultrasound shows leiomyomatosis uterus. Surgery was consulted over the phone and recommended liquid diet and will see the patient in the morning. Updates: She was never had rectal bleeding before. She denies abdominal pain. Her bleeding stopped overnight. She did use ibuprofen fairly heavily the last 2 days for her back but this is very uncommon practice for her. No nausea or hematemesis. She was scheduled for her 1st colonoscopy later this year. She was family history of colon polyps. No history of inflammatory bowel disease. She denies any chest pain, shortness and breath. Hemoglobin has remained stable overnight. 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 Bicuspid aortic valve Social History household members: friend(s) education level: other (graduate degree, chiropractor) occupational status: employed Smoking Status: Former smoker Meds Home Medications and Allergies Home Medications Medication Instructions Recorded Confirmed Type estradiol 0.0375 mg/24 hr 1 patch transdermal 2XW 05/07/22 03/19/24 History semiweekly transdermal patch (Penny) melatonin 3 mg/4 mL oral drops 0.5 mg PO BEDTIME PRN insomnia 05/07/22 03/19/24 History progesterone micronized 100 mg 100 mg PO QAM 05/07/22 03/19/24 History capsule thyroid (pork) 120 mg tablet 120 mg PO DAILY 05/07/22 03/19/24 History (Clare Thyroid) thyroid (pork) 15 mg tablet 15 mg PO DAILY 05/07/22 03/19/24 History (Clare Thyroid) liothyronine 5 mcg tablet 15 mcg PO DAILY 10/07/23 03/19/24 History semaglutide 1 mg/dose (2 mg/1.5 1 mg SUBCUT ONCE 10/07/23 03/19/24 History mL) subcutaneous pen injector Allergies Allergy/AdvReac Type Severity Reaction Status Date / Time Penicillins Allergy Mild Rash Verified 03/19/24 10:28 azithromycin Allergy Swelling Verified 03/08/24 10:43 of Lip/Tongue/Throat acetaminophen [From Percocet] AdvReac Severe Difficulty Verified 03/08/24 10:43 Breathing ciprofloxacin [From Cipro] AdvReac Severe Rash Verified 03/08/24 10:43 diltiazem [From Cartia XT] AdvReac Severe swelling Verified 03/08/24 10:43 of hand and feet hydrochlorothiazide AdvReac Severe Abdominal Verified 03/08/24 10:43 Pain oxycodone [From Percocet] AdvReac Severe Difficulty Verified 03/08/24 10:43 Breathing sulfamethoxazole AdvReac Severe GI upset Verified 03/08/24 10:43 [From Bactrim] trimethoprim [From Bactrim] AdvReac Severe GI upset Verified 03/08/24 10:43 losartan AdvReac Cramping Verified 03/08/24 10:43 of the Muscles Review of Systems Review of Systems Narrative: All else reviewed and otherwise unremarkable except as noted in the history and physical. Exam Vital Signs (past 8 hours): - 03/19/24 00:30 03/19/24 01:00 03/19/24 02:29 Temperature 96.8 F L Pulse Rate 87 90 80 Respiratory Rate 17 19 16 Blood Pressure 107/65 Pulse Oximetry 98 97 98 Oxygen Delivery Method Oxygen Flow Rate 0 03/19/24 03:09 03/19/24 05:54 03/19/24 07:39 Temperature 96.8 F L 97.3 F L Pulse Rate 82 85 Respiratory Rate 16 19 Blood Pressure 107/61 99/61 Pulse Oximetry 96 98 Oxygen Delivery Method Room Air Oxygen Flow Rate 0 0 Oxygen Delivery Method Room Air Oxygen Flow Rate 0 Narrative Exam Narrative: NAD, alert and oriented, fluent speech, calm. Normocephalic skull, EOMI, anicteric sclera, symmetric pupils. Oropharynx unremarkable, no droop. Neck supple, midline trachea, no adenopathy. Lungs clear, normal rate and effort. Heart regular, no murmur gallop or rub. Abdomen is soft, non distended and non tender. Extremities are free of edema. Skin is free of rash or lesions. Joints are not swollen or deformed. Judgment appears to be normal. Objective Labs 03/19/24 08:30 03/19/24 08:30 Labs: Laboratory Results - last 24 hr 03/18/24 03/18/24 03/18/24 22:45 22:46 23:11 WBC 8.6 RBC 3.79 L Hgb 10.4 L Hct 30.0 L MCV 79.3 L MCH 27.5 MCHC 34.6 RDW 13.0 Plt Count 279 Neut % (Auto) 57.2 Lymph % (Auto) 31.3 [place] % (Auto) 9.2 Eos % (Auto) 1.9 L Baso % (Auto) 0.4 Neut # (Auto) 5000 Lymph # (Auto) 2700 [place] # (Auto) 800 Eos # (Auto) 200 Baso # (Auto) 0 PT 13.0 H INR 1.1 APTT 34 Sodium 141 Potassium 4.0 Chloride 111 H Carbon Dioxide 26 BUN 18 H Creatinine 0.55 Estimated GFR > 60 BUN/Creatinine Ratio 32.7 H Glucose 132 H Calcium 8.4 Total Bilirubin 0.4 AST 20 ALT 19 Alkaline Phosphatase 71 Total Protein 6.3 Albumin 3.8 Globulin 2.5 Albumin/Globulin Ratio 1.5 Urine RBC Urine WBC Ur Squamous Epith Cells Urine Bacteria Ur Culture Indicated? Vol Urine Centrifuged Stl C. cayetanensis PCR Not detected Stool Rotavirus (PCR) Not detected Stool Adenovirus (PCR) Not detected Stool Astrovirus (PCR) Not detected Stool Cryptosporidium PCR Not detected Stl E.coli Shiga Tox PCR Not detected St Sh/Enteroin Ecoli PCR Not detected Stl Enterotoxigenic E PCR Not detected Stool EPEC (PCR) Not detected Stl E. histolytica PCR Not detected Stool Giardia Lamblia PCR Not detected Stool Sapovirus (PCR) Not detected Stl P. shigelloides PCR Not detected St Y.enterocolitica PCR Not detected Stool Vibrio (PCR) Not detected Stl Vibrio cholerae PCR Not detected Stl Enteroaggr Ecoli PCR Not detected Stl Norovirus GI/GII PCR Not detected Campylobacter (PCR) Not detected C. difficile Tox (PCR) Not detected Salmonella (PCR) Not detected Blood Type A Negative Antibody Screen Negative 03/19/24 03/19/24 01:15 03:32 WBC RBC Hgb 8.7 L Hct 25.0 L MCV MCH MCHC RDW Plt Count Neut % (Auto) Lymph % (Auto) [place] % (Auto) Eos % (Auto) Baso % (Auto) Neut # (Auto) Lymph # (Auto) [place] # (Auto) Eos # (Auto) Baso # (Auto) PT INR APTT Sodium Potassium Chloride Carbon Dioxide BUN Creatinine Estimated GFR BUN/Creatinine Ratio Glucose Calcium Total Bilirubin AST ALT Alkaline Phosphatase Total Protein Albumin Globulin Albumin/Globulin Ratio Urine RBC None seen Urine WBC None seen Ur Squamous Epith Cells 0-1 /hpf Urine Bacteria None seen Ur Culture Indicated? Cult not indicated Vol Urine Centrifuged 10ml (spun) Stl C. cayetanensis PCR Stool Rotavirus (PCR) Stool Adenovirus (PCR) Stool Astrovirus (PCR) Stool Cryptosporidium PCR Stl E.coli Shiga Tox PCR St Sh/Enteroin Ecoli PCR Stl Enterotoxigenic E PCR Stool EPEC (PCR) Stl E. histolytica PCR Stool Giardia Lamblia PCR Stool Sapovirus (PCR) Stl P. shigelloides PCR St Y.enterocolitica PCR Stool Vibrio (PCR) Stl Vibrio cholerae PCR Stl Enteroaggr Ecoli PCR Stl Norovirus GI/GII PCR Campylobacter (PCR) C. difficile Tox (PCR) Salmonella (PCR) Blood Type Antibody Screen Assessment & Plan Assessment & Plan narrative: 1. Acute GI bleeding, present on admission and improved (no recent rectal bleeding today). 2. Acute blood loss anemia, present on admission and active. 3. Obstructive sleep apnea, present on admission stable. 4. Sebastien's thyroiditis, present on admission and stable. PLAN: -clears today, prep for colon and EGD tomorrow. -serial HH, blood as needed -continue Portonix BID Estimated date of discharge is March 19 (after scopes). She remains observation status. Quality VTE Deep Vein Thrombosis/Pulmonary Embolism Present on Admission: No
[2024-03-19 08:39] LABS: Add Manual Diff / Slide Review NO; Basophils Absolute Auto 0 /uL (0-100); Basophils Percent Auto 0.3 % (0-2); Eosinophils Absolute Auto 0 /uL (0-450); Eosinophils Percent Auto 0.1 % (2-4); Hematocrit 23.8 % (36-46); Lymphocytes Absolute Auto 1500 /uL (1100-4500); Lymphocytes Percent Auto 20.3 % (25-40); Mean Corpuscular HGB Conc 33.8 % (30-36); Mean Corpuscular Hemoglobin 27.1 PG (26-34); Monocytes Absolute Auto 400 /uL (0-900); Neutrophils Absolute Auto 5500 /uL (1500-7000); Neutrophils Percent Auto 74.3 % (50-75); Platelet Count 247 X10^3/uL (150-400); Red Blood Cell Count 2.97 X10^6/uL (4.0-5.2); Red Cell Distribution Width 13.2 % (11.6-14.8); White Blood Cell Count 7.4 X10^3/uL (4.5-11.0)
[2024-03-19] MEDS: PANTOPRAZOLE 40 MG VIAL IV ×2 (08:41→20:00)
[2024-03-19 08:58] LABS: Alanine Aminotransferase 15 IU/L (<35); Albumin 2.9 g/dL (3.5-5.0); Albumin Globulin Ratio 1.5 (1.0-2.8); Alkaline Phosphatase 63 U/L (38-126); Aspartate Aminotransferase 16 IU/L (14-36); BUN Creatinine Ratio 41.5 (6-22); Bilirubin Total 0.4 mg/dL (0.2-1.3); Blood Urea Nitrogen 17 mg/dL (7-17); Calcium 7.9 mg/dL (8.4-10.2); Carbon Dioxide 24 mmol/L (22-32); Chloride 113 mmol/L (98-107); Estimated Glomerular Filt Rate > 60 mL/min (>60); Glucose 125 mg/dL (70-100); HEMOLYSIS < 15 (0-50); Potassium 4.1 mmol/L (3.4-5.1); Sodium 137 mmol/L (137-145); Total Protein 4.9 g/dL (6.3-8.2)
--- NOTE | 2024-03-19 10:28 | PM.CALLCOV.1 ---
Call Coverage Note Note Date of Patient Contact: 03/19/24 Narrative of Care Provided: adele bowel prep this afternoon with EGD and colonoscopy tomorrow. Unable to due EGD this morning due to full liquid diet.
[2024-03-19] MEDS: LIOTHYRONINE 5 MCG TABLET 15 MCG PO (10:36)
[2024-03-19 14:05] LABS: Add Manual Diff / Slide Review NO; Basophils Absolute Auto 0 /uL (0-100); Basophils Percent Auto 0.4 % (0-2); Eosinophils Absolute Auto 100 /uL (0-450); Eosinophils Percent Auto 0.9 % (2-4); Hemoglobin 7.1 g/dL (12.0-16.0); Lymphocytes Absolute Auto 1800 /uL (1100-4500); Lymphocytes Percent Auto 30.6 % (25-40); Mean Corpuscular Hemoglobin 27.1 PG (26-34); Mean Corpuscular Volume 79.8 fL (80-100); Monocytes Absolute Auto 400 /uL (0-900); Monocytes Percent Auto 6.7 % (3-14); Neutrophils Absolute Auto 3500 /uL (1500-7000); Neutrophils Percent Auto 61.4 % (50-75); Platelet Count 202 X10^3/uL (150-400); Red Blood Cell Count 2.63 X10^6/uL (4.0-5.2); Red Cell Distribution Width 13.2 % (11.6-14.8); White Blood Cell Count 5.7 X10^3/uL (4.5-11.0)
[2024-03-19] MEDS: PEG3350/SOD SULF,BICARB,CL/KCL 4,000 ML SOLUTION 2000 ML PO (14:13)
--- NOTE | 2024-03-19 15:11 | CM.DANOTE ---
Patient is a 53 yo female who was admitted OBS Status on 03/19/24 today for GI Bleed/Anemia. Pt has REG PPO for insurance and her PCP is Loida Briceno. EMR was reviewed. Per MD, pt with hx of Hashimotos disease and currently on liquid diet while awaiting Surgeon Consult. Per Surgeon, pt to have bowel prep today with plan of upper and lower scope tomorrow Wednesday to determine source of bleed. Per Rn, pt independent and no concerns noted at this time. 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 Pt drives and does not use DME for ambulation. Pt shocked by the GI bleed/anemia and hopeful to get answers about the source of bleed. Pt preference is to discharge home when medically stable and confirms that friend can provide transport at d/c. Plan: SW to follow closely after scope tomorrow to confirm safe plan of home when stable and any further identified discharge planning needs. YOVANY Dash Discharge Planning/Care Management CM Discharge Assessment Start: 03/19/24 15:06 Freq: Status: Active Protocol: Document 03/19/24 15:06 BF (Rec: 03/19/24 15:09 BF [id number]) Discharge Planning Assessment Assigned Disciplinary Hearing Officer YOVANY Mccann DPOA/Assigned Designee Name none Advance Directives? No Advance Directives on File No History Provided By Patient,Medical Record Has Patient been admitted in last 30 No days? Prior Living Arrangements House Household Members friend(s) Type of transporation used prior to Drives own vehicle admit Independent with ADL's Yes Is patient alert and oriented? Yes Caregiver for Another No Barriers to Discharge No Discharge Plan Home Transportation Arrangement local supportive friend Referrals Initiated None needed Additional Comment Pending upper and lower scope tomorrow Whiteboard Updated in Patient Room with Yes name and ext. # of Disciplinary Hearing Officer Review Status In Process Please Provide Date Initial DC 03/19/24 Assessment Was Performed Next Review Type Continued Stay Review
[2024-03-19 19:40] LABS: Add Manual Diff / Slide Review NO; Basophils Absolute Auto 0 /uL (0-100); Basophils Percent Auto 0.6 % (0-2); Eosinophils Absolute Auto 100 /uL (0-450); Hemoglobin 7.1 g/dL (12.0-16.0); Lymphocytes Absolute Auto 2000 /uL (1100-4500); Lymphocytes Percent Auto 39.2 % (25-40); Mean Corpuscular HGB Conc 34.5 % (30-36); Mean Corpuscular Hemoglobin 27.5 PG (26-34); Mean Corpuscular Volume 79.8 fL (80-100); Monocytes Absolute Auto 400 /uL (0-900); Monocytes Percent Auto 7.1 % (3-14); Neutrophils Absolute Auto 2600 /uL (1500-7000); Neutrophils Percent Auto 52.1 % (50-75); Platelet Count 192 X10^3/uL (150-400); Red Blood Cell Count 2.56 X10^6/uL (4.0-5.2); Red Cell Distribution Width 13.3 % (11.6-14.8); White Blood Cell Count 5.1 X10^3/uL (4.5-11.0)
[2024-03-19 19:43] LABS: Hematocrit 20.4 % (36-46)
[2024-03-20] VITALS (13 sets, daily range): BP systolic 117–157; BP diastolic 73–87; PULSE 79–102; RESP 12–19; TEMP 36.2–36.9; O2SAT 94–100
[2024-03-20 04:44] LABS: Add Manual Diff / Slide Review NO; Basophils Absolute Auto 0 /uL (0-100); Basophils Percent Auto 0.7 % (0-2); Eosinophils Absolute Auto 100 /uL (0-450); Eosinophils Percent Auto 1.9 % (2-4); Hematocrit 21.7 % (36-46); Hemoglobin 7.6 g/dL (12.0-16.0); Lymphocytes Absolute Auto 2200 /uL (1100-4500); Lymphocytes Percent Auto 49.3 % (25-40); Monocytes Absolute Auto 300 /uL (0-900); Monocytes Percent Auto 6.4 % (3-14); Neutrophils Absolute Auto 1900 /uL (1500-7000); Neutrophils Percent Auto 41.7 % (50-75); Platelet Count 175 X10^3/uL (150-400); Red Blood Cell Count 2.71 X10^6/uL (4.0-5.2); Red Cell Distribution Width 13.8 % (11.6-14.8); White Blood Cell Count 4.5 X10^3/uL (4.5-11.0)
[2024-03-20 04:56] LABS: Alanine Aminotransferase 13 IU/L (<35); Albumin 2.7 g/dL (3.5-5.0); Albumin Globulin Ratio 1.4 (1.0-2.8); Alkaline Phosphatase 54 U/L (38-126); Aspartate Aminotransferase 15 IU/L (14-36); BUN Creatinine Ratio 22.2 (6-22); Bilirubin Total 0.5 mg/dL (0.2-1.3); Blood Urea Nitrogen 10 mg/dL (7-17); Calcium 7.7 mg/dL (8.4-10.2); Carbon Dioxide 24 mmol/L (22-32); Chloride 115 mmol/L (98-107); Estimated Glomerular Filt Rate > 60 mL/min (>60); Glucose 89 mg/dL (70-100); HEMOLYSIS < 15 (0-50); Potassium 3.6 mmol/L (3.4-5.1); Sodium 139 mmol/L (137-145); Total Protein 4.7 g/dL (6.3-8.2)
--- NOTE | 2024-03-20 05:54 | CM.MNRNOTE ---
Pt requesting to have her morning meds held until she gets done with res procedure today.
[2024-03-20] MEDS: PANTOPRAZOLE 40 MG VIAL IV ×2 (08:25→20:05)
[2024-03-20] MEDS: SODIUM CHLORIDE 0.9% 1,000 ML 100 ML IV (09:04)
[2024-03-20] MEDS: LACTATED RINGERS 1,000 ML 42 ML IV (13:28)
--- NOTE | 2024-03-20 14:00 | P.HP_ITS ---
History of Present Illness History of Present Illness Date Patient Seen: 03/20/24 Time Patient Seen: 14:00 Chief complaint: bloody diarrhea Narrative: Severe anemia with bloody diarrhea. Has never had colonoscopy. No family history for GI cancers. 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 Bicuspid aortic valve Social History household members: friend(s) education level: other (graduate degree, chiropractor) occupational status: employed Smoking Status: Former smoker alcohol intake: current Meds Home Medications and Allergies Home Medications Medication Instructions Recorded Confirmed Type estradiol 0.0375 mg/24 hr 1 patch transdermal 2XW 05/07/22 03/19/24 History semiweekly transdermal patch (Penny) melatonin 3 mg/4 mL oral drops 0.5 mg PO BEDTIME PRN insomnia 05/07/22 03/19/24 History progesterone micronized 100 mg 100 mg PO QAM 05/07/22 03/19/24 History capsule thyroid (pork) 120 mg tablet 120 mg PO DAILY 05/07/22 03/19/24 History ([place] Thyroid) thyroid (pork) 15 mg tablet 15 mg PO DAILY 05/07/22 03/19/24 History ([place] Thyroid) liothyronine 5 mcg tablet 15 mcg PO DAILY 10/07/23 03/19/24 History semaglutide 1 mg/dose (2 mg/1.5 1 mg SUBCUT ONCE 10/07/23 03/20/24 History mL) subcutaneous pen injector Allergies Allergy/AdvReac Type Severity Reaction Status Date / Time Penicillins Allergy Mild Rash Verified 03/20/24 13:23 azithromycin Allergy Swelling Verified 03/20/24 13:23 of Lip/Tongue/Throat ciprofloxacin [From Cipro] AdvReac Severe Rash Verified 03/20/24 13:23 diltiazem [From Cartia XT] AdvReac Severe swelling Verified 03/20/24 13:23 of hand and feet hydrochlorothiazide AdvReac Severe Abdominal Verified 03/20/24 13:23 Pain oxycodone [From Percocet] AdvReac Severe Difficulty Verified 03/20/24 13:23 Breathing sulfamethoxazole AdvReac Severe GI upset Verified 03/20/24 13:23 [From Bactrim] trimethoprim [From Bactrim] AdvReac Severe GI upset Verified 03/20/24 13:23 losartan AdvReac Cramping Verified 03/20/24 13:23 of the Muscles Review of Systems Review of Systems ROS: Yes All systems reviewed with the patient and are negative except as otherwise documented Exam Vital Signs (past 8 hours): - 03/20/24 08:00 03/20/24 12:00 03/20/24 13:15 Temperature 97.6 F 97.4 F L 98.2 F Pulse Rate 79 80 85 Respiratory Rate 15 16 16 Blood Pressure 141/81 H 143/79 H 138/84 Pulse Oximetry 97 98 98 Oxygen Delivery Method Room Air Oxygen Flow Rate 0 0 Oxygen Delivery Method Room Air Oxygen Flow Rate 0 Const General: cooperative, healthy appearing and comfortable [facility] Head: normocephalic and atraumatic Ears: hearing grossly normal bilaterally Eyes General: appearance normal, both eyes and all related structures Sclera: sclerae normal Neck Neck: trachea midline and No JVD Resp Effort & Inspection: normal respiratory effort and able to speak in complete sentences Cardio Rate: regular rate Rhythm: regular rhythm GI Palpation: soft and No tender Skin General: No atrophy and pallor Neuro General: patient alert, patient awake and patient oriented x3 Cognition: normal cognition Psych Mental Status: mental status grossly normal Attitude: cooperative Judgment: judgment good Objective Labs 03/20/24 04:29 03/20/24 04:29 Labs: Laboratory Results - last 24 hr 03/18/24 03/19/24 03/19/24 23:11 14:00 19:20 WBC 5.7 5.1 RBC 2.63 L 2.56 L Hgb 7.1 L 7.1 L Hct 21.0 L 20.4 L* MCV 79.8 L 79.8 L MCH 27.1 27.5 MCHC 34.0 34.5 RDW 13.2 13.3 Plt Count 202 192 Neut % (Auto) 61.4 52.1 Lymph % (Auto) 30.6 39.2 [place] % (Auto) 6.7 7.1 Eos % (Auto) 0.9 L 1.0 L Baso % (Auto) 0.4 0.6 Neut # (Auto) 3500 2600 Lymph # (Auto) 1800 2000 [place] # (Auto) 400 400 Eos # (Auto) 100 100 Baso # (Auto) 0 0 Sodium Potassium Chloride Carbon Dioxide BUN Creatinine Estimated GFR BUN/Creatinine Ratio Glucose Calcium Total Bilirubin AST ALT Alkaline Phosphatase Total Protein Albumin Globulin Albumin/Globulin Ratio Blood Type A Negative Antibody Screen Negative Crossmatch See Detail 03/19/24 03/20/24 19:40 04:29 WBC 4.5 RBC 2.71 L Hgb 7.6 L Hct 21.7 L MCV 80.0 MCH 28.0 MCHC 35.0 RDW 13.8 Plt Count 175 Neut % (Auto) 41.7 L Lymph % (Auto) 49.3 H [place] % (Auto) 6.4 Eos % (Auto) 1.9 L Baso % (Auto) 0.7 Neut # (Auto) 1900 Lymph # (Auto) 2200 [place] # (Auto) 300 Eos # (Auto) 100 Baso # (Auto) 0 Sodium 139 Potassium 3.6 Chloride 115 H Carbon Dioxide 24 BUN 10 Creatinine 0.45 L Estimated GFR > 60 BUN/Creatinine Ratio 22.2 H Glucose 89 Calcium 7.7 L Total Bilirubin 0.5 AST 15 ALT 13 Alkaline Phosphatase 54 Total Protein 4.7 L Albumin 2.7 L Globulin 2.0 Albumin/Globulin Ratio 1.4 Blood Type A Negative Antibody Screen Negative Crossmatch See Detail Assessment & Plan Assessment & Plan narrative: GI bleed with anemia requiring transfusion Plan: EGD and colonoscopy with anesthesia Time Spent With Patient Time with patient: less than 30 minutes Quality VTE Deep Vein Thrombosis/Pulmonary Embolism Present on Admission: No
--- NOTE | 2024-03-20 14:39 | DI.CT.S_ITS ---
PROCEDURE: CT ABDOMEN PELVIS W CON INDICATIONS: bloody diarrhea. TECHNIQUE: After the administration of intravenous contrast, axial sections acquired from the lung bases to the pubic symphysis. Coronal and sagittal reformats were performed. For radiation dose reduction, the following was used: automated exposure control, adjustment of mA and/or kV according to patient size. COMPARISON: None. FINDINGS: Image quality: Diagnostic. Lower Chest: No significant findings. ABDOMEN: Liver: No solid mass. Gallbladder: Multiple rim calcified gallstones noted in the gallbladder without wall thickening. No pericholecystic inflammation. Biliary ducts: No biliary dilation. Pancreas: No ductal dilation. No peripancreatic inflammation Spleen: Size is within normal limits. Adrenal Glands: No adrenal nodules. Kidneys and Ureters: No hydronephrosis. No solid mass. No complex renal cystic lesion which requires follow up. Nonobstructing 3 mm right intrarenal calculus. No perinephric stranding. Bilateral ureters are normal in course and caliber. Mild patchy Stomach and Bowel: Normal colonic caliber, without significant wall thickening. Scattered colonic diverticulosis without acute diverticulitis. Normal appendix. Scattered fluid-filled loops of colon and distal small bowel. Oral contrast opacifies bowel to level of the distal small bowel. Peritoneum: No abnormal intraperitoneal fluid. No free air. Ventral Wall: There is a fat-containing umbilical hernia without acute inflammation. Abdominal Nodes: No retroperitoneal or mesenteric adenopathy by size criteria. Vessels: Aorta and inferior vena cava are normal in size. PELVIS: Pelvic Organs: Prominent, heterogeneous and lobular appearance of the uterus likely related to fibroids. Bilateral Essure occlusion devices are present. Bladder: No bladder wall thickening, accounting for underdistention. Pelvic Nodes: No enlarged lymph nodes. Miscellaneous: No inguinal hernias are seen. Bones: No aggressive osseous abnormality. Visualized osseous structures appear intact without acute fracture or focal destructive lesion. No acute compression fractures of the imaged spine. IMPRESSION: 1. CT abdomen and pelvis without acute abnormalities to explain patient's history of bloody diarrhea. However, gastroenteritis not excluded given fluid-filled loops of distal small bowel. There is no significant wall thickening or inflammatory changes within the visualized bowel. 2. Cholelithiasis without CT evidence for acute cholecystitis. 3. Colonic diverticulosis without acute diverticulitis. 4. Normal appendix. 5. Prominent, heterogeneous and lobulated appearance of the uterus, likely related to fibroids. Other chronic findings as above. Dictated by: Corey Bender M.D. on 03/20/2024 at 17:11 Approved by: Corey Bender M.D. on 03/20/2024 at 17:25
--- NOTE | 2024-03-20 14:44 | PM.OP.EC ---
Operative Date/Time/Diagnoses Date of procedure: 03/20/24 Time of procedure: 14:44 Pre-op diagnosis: Bloody diarrhea, severe anemia Post-op diagnosis: same Procedure & Clinicians Study performed: EGD and colonoscopy with anesthesia Same procedure as scheduled: Yes Indications: Bloody diarrhea with severe anemia Surgeon: Adri Gonzalez Procedure Notes Procedure in detail: Preop diagnosis bloody diarrhea with severe anemia Postop diagnosis: Same Procedure: EGD and colonoscopy with anesthesia Surgeon: Cristy Gonzalez MD Findings: No real bleeding source. She did have colonic diverticulosis predominantly in the descending colon. Scant small diverticuli of the right colon. Poor bowel prep so that smaller polyps could have been overlooked. Procedure: Patient placed in a lateral position. Anesthetic was provided. Beginning with the upper scope. Scope inserted into the esophagus advanced into the stomach and identified the pylorus. Intubated into duodenal and advanced into the 2nd a portion duodenal without evidence of duodenitis or ulcerations and no reflux of what is clearly an active low-grade bleeding. Retraction into the stomach including a retroflex also showed a normal stomach. Normal esophagus. Patient was sponge so that we could proceed with the colonoscopy. Rectal exam shows normal tone no masses. Scope was inserted into the rectum and advanced to ileocecal valve with minimal difficulty. Insufflation extraction scope and the above findings. I identified diverticulosis that is severe and small to moderate sizing of the descending colon. Scattered small diverticuli of the right colon. Bleeding source again not identified. Blood coming through the TI. Retroflex was included in this procedure as well. Impression: No bleeding source identified in the upper GI tract or the colon. Possible etiologies or inflammatory bowel disease, hemorrhagic enteritis, or angiodysplasia. Plan: Clear liquid diet. CT scan abdomen and pelvis with p.o. and IV contrast. Results texted to Dr. Cardenas. Findings: diverticulosis Specimen(s): none sent Complications: none Post-procedure Recommendations: Colonscopy in 5 years Follow up: as needed Disposition: PACU
--- NOTE | 2024-03-20 16:05 | CM.DPC ---
DCP Cont: Per Surgeon, pt to have upper and lower scope this afternoon and pending results will determine when pt may be stable for discharge. Per RN, pt has remained independent in room and no concerns at this time. Pt off floor for scopes. Plan: SW to follow closely for scope results to determine any discharge planning needs and if safe for return home with roommate/friend. YOVANY Dash
[2024-03-20 16:15] LABS: Hematocrit 24.1 % (36-46); Hemoglobin 8.3 g/dL (12.0-16.0)
--- NOTE | 2024-03-20 16:50 | PM.PN.1 ---
Subjective Subjective Interval history: She was hanging in there. No abdominal pain. No nausea. Her hemoglobin is slightly up from her morning hemoglobin. She received 1 unit of blood yesterday. EGD today was unremarkable and colonoscopy was unremarkable other than some blood-tinged drainage into the colon. Dr. Gonzalez ordered a CT of the abdomen and pelvis which again is fairly unremarkable. She was passing a small amount of clear liquid with blood tinging. Exam Vital Signs (past 8 hours): - 03/20/24 12:00 03/20/24 13:15 03/20/24 14:43 Temperature 97.4 F L 98.2 F 98.5 F Pulse Rate 80 85 100 H Respiratory Rate 16 16 19 Blood Pressure 143/79 H 138/84 117/73 Pulse Oximetry 98 98 95 Oxygen Delivery Method Room Air Room Air Oxygen Flow Rate 0 0 03/20/24 14:48 03/20/24 14:54 03/20/24 15:00 Temperature Pulse Rate 102 H 97 H 91 H Respiratory Rate 16 16 12 Blood Pressure 127/82 134/80 130/83 Pulse Oximetry 95 94 94 Oxygen Delivery Method Room Air Room Air Room Air Oxygen Flow Rate 0 0 0 03/20/24 15:15 03/20/24 16:00 03/20/24 16:00 Temperature 97.1 F L Pulse Rate 87 85 85 Respiratory Rate 16 16 16 Blood Pressure 145/87 H 157/87 H 157/87 H Pulse Oximetry 98 99 99 Oxygen Delivery Method Oxygen Flow Rate 0 0 0 Oxygen Delivery Method Room Air Oxygen Flow Rate 0 Narrative Exam Narrative: NAD, alert and oriented. Fluent speech. Lungs are clear, normal rate and effort. Heart is regular, 3/6 systolic murmur, and no gallop or rub. Abdomen is soft, non distended. Extremities are free of edema. Objective Labs 03/20/24 15:46 03/20/24 04:29 Labs: Laboratory Results - last 24 hr 03/18/24 03/19/24 03/19/24 23:11 19:20 19:40 WBC 5.1 RBC 2.56 L Hgb 7.1 L Hct 20.4 L* MCV 79.8 L MCH 27.5 MCHC 34.5 RDW 13.3 Plt Count 192 Neut % (Auto) 52.1 Lymph % (Auto) 39.2 [place] % (Auto) 7.1 Eos % (Auto) 1.0 L Baso % (Auto) 0.6 Neut # (Auto) 2600 Lymph # (Auto) 2000 [place] # (Auto) 400 Eos # (Auto) 100 Baso # (Auto) 0 Sodium Potassium Chloride Carbon Dioxide BUN Creatinine Estimated GFR BUN/Creatinine Ratio Glucose Calcium Total Bilirubin AST ALT Alkaline Phosphatase Total Protein Albumin Globulin Albumin/Globulin Ratio Blood Type A Negative A Negative Antibody Screen Negative Negative Crossmatch See Detail See Detail 03/20/24 03/20/24 04:29 15:46 WBC 4.5 RBC 2.71 L Hgb 7.6 L 8.3 L Hct 21.7 L 24.1 L MCV 80.0 MCH 28.0 MCHC 35.0 RDW 13.8 Plt Count 175 Neut % (Auto) 41.7 L Lymph % (Auto) 49.3 H [place] % (Auto) 6.4 Eos % (Auto) 1.9 L Baso % (Auto) 0.7 Neut # (Auto) 1900 Lymph # (Auto) 2200 [place] # (Auto) 300 Eos # (Auto) 100 Baso # (Auto) 0 Sodium 139 Potassium 3.6 Chloride 115 H Carbon Dioxide 24 BUN 10 Creatinine 0.45 L Estimated GFR > 60 BUN/Creatinine Ratio 22.2 H Glucose 89 Calcium 7.7 L Total Bilirubin 0.5 AST 15 ALT 13 Alkaline Phosphatase 54 Total Protein 4.7 L Albumin 2.7 L Globulin 2.0 Albumin/Globulin Ratio 1.4 Blood Type Antibody Screen Crossmatch COUNT INCLUDES THE [facility] Medical History Postmenopausal bleeding ASCUS with positive high risk HPV Sleep apnea 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 Acute GI bleeding, present on admission and improved (no recent rectal bleeding today). 2. Acute blood loss anemia, present on admission and active. 3. Obstructive sleep apnea, present on admission stable. 4. Sebastien's thyroiditis, present on admission and stable. 5. Bicuspid aortic valve with systolic murmur, present on admission and stable. Plan: -Clear liqs tonight and a hemoglobin at 11:00 p.m. and 5:00 a.m.. Blood transfusion if she hits threshold of 7 or 21. If she appears to have ongoing blood loss she may require transfer to [facility] for an angiogram and further evaluation with Gastroenterology and Interventional Radiology. I explained this to her and she understands the plan is in agreement with the plan. Quality VTE Deep Vein Thrombosis/Pulmonary Embolism Present on Admission: No
[2024-03-20] MEDS: LIOTHYRONINE 5 MCG TABLET 15 MCG PO (17:10)
[2024-03-20] MEDS: THYROID, PORK 30 MG TABLET 135 MG PO (17:10)
[2024-03-20 23:31] LABS: Hemoglobin 7.1 g/dL (12.0-16.0)
[2024-03-20 23:52] LABS: Hematocrit 20.2 % (36-46)
[2024-03-21] VITALS (10 sets, daily range): BP systolic 121–141; BP diastolic 79–85; PULSE 81–114; RESP 16–18; TEMP 35.7–36.9; O2SAT 97–99
[2024-03-21] MEDS: SODIUM CHLORIDE 0.9% 1,000 ML 100 ML IV (01:48)
[2024-03-21] MEDS: LIOTHYRONINE 5 MCG TABLET 15 MCG PO (05:42)
[2024-03-21] MEDS: THYROID, PORK 30 MG TABLET 135 MG PO (05:43)
[2024-03-21 05:52] LABS: Hemoglobin 7.1 g/dL (12.0-16.0)
[2024-03-21 06:16] LABS: Hematocrit 20.2 % (36-46)
[2024-03-21 06:28] LABS: Alanine Aminotransferase 12 IU/L (<35); Albumin 2.8 g/dL (3.5-5.0); Albumin Globulin Ratio 1.4 (1.0-2.8); Alkaline Phosphatase 55 U/L (38-126); Aspartate Aminotransferase 16 IU/L (14-36); BUN Creatinine Ratio 11.9 (6-22); Bilirubin Total 0.4 mg/dL (0.2-1.3); Blood Urea Nitrogen 5 mg/dL (7-17); Calcium 7.9 mg/dL (8.4-10.2); Carbon Dioxide 27 mmol/L (22-32); Chloride 112 mmol/L (98-107); Estimated Glomerular Filt Rate > 60 mL/min (>60); Glucose 89 mg/dL (70-100); HEMOLYSIS < 15 (0-50); Potassium 3.4 mmol/L (3.4-5.1); Sodium 140 mmol/L (137-145); Total Protein 4.8 g/dL (6.3-8.2)
[2024-03-21] MEDS: PANTOPRAZOLE 40 MG VIAL IV ×2 (08:25→20:23)
--- NOTE | 2024-03-21 10:56 | CM.DPC ---
DCP Cont. Reviewed EMR and team rounds for status updates. Pt's H&H remains critically low. She is being monitored closely for possible transfer to [facility] if her blood levels don't improve with current interventions.
[2024-03-21 13:40] LABS: Magnesium 1.9 mg/dL (1.6-2.3)
[2024-03-21 13:43] LABS: C-Reactive Protein Quant < 0.5 mg/dL (<1.0)
--- NOTE | 2024-03-21 13:52 | PM.PN.1 ---
Subjective Subjective Interval history: Patient's bloody diarrhea has slowed down she says. Had none overnight and one small amount of blood this morning. She tells me she had a caramel apple [place] the carnival 4 hours before her symptoms started, but she didn't think much of it. Hgb unchanged at 7.1 this morning. 1 unit PRBC ordered. Exam Vital Signs (past 8 hours): - 03/21/24 09:00 03/21/24 10:42 03/21/24 11:00 Temperature 96.3 F L 97.2 F L 97.2 F L Pulse Rate 87 92 H 87 Respiratory Rate 16 16 16 Blood Pressure 137/85 135/80 135/80 Pulse Oximetry 98 99 Oxygen Flow Rate 0 0 03/21/24 11:20 03/21/24 11:40 03/21/24 13:51 Temperature 98.1 F 98.1 F 96.5 F L Pulse Rate 91 H 94 H 114 H Respiratory Rate 16 16 16 Blood Pressure 141/85 H 141/85 H 121/81 Pulse Oximetry 99 Oxygen Flow Rate 0 Oxygen Delivery Method Room Air Oxygen Flow Rate 0 Narrative Exam Narrative: NAD, alert and oriented. Fluent speech. Lungs are clear, normal rate and effort. Heart is regular, 3/6 systolic murmur, and no gallop or rub. Abdomen is soft, non distended. Extremities are free of edema. Objective Labs 03/21/24 04:59 03/21/24 04:59 Labs: Laboratory Results - last 24 hr 03/19/24 03/20/24 03/20/24 19:40 15:46 23:09 Hgb 8.3 L 7.1 L Hct 24.1 L 20.2 L* Sodium Potassium Chloride Carbon Dioxide BUN Creatinine Estimated GFR BUN/Creatinine Ratio Glucose Calcium Magnesium Total Bilirubin AST ALT Alkaline Phosphatase C-Reactive Protein Total Protein Albumin Globulin Albumin/Globulin Ratio Blood Type A Negative Antibody Screen Negative Crossmatch See Detail 03/21/24 03/21/24 04:59 12:25 Hgb 7.1 L Hct 20.2 L* Sodium 140 Potassium 3.4 Chloride 112 H Carbon Dioxide 27 BUN 5 L Creatinine 0.42 L Estimated GFR > 60 BUN/Creatinine Ratio 11.9 Glucose 89 Calcium 7.9 L Magnesium 1.9 Total Bilirubin 0.4 AST 16 ALT 12 Alkaline Phosphatase 55 C-Reactive Protein < 0.5 Total Protein 4.8 L Albumin 2.8 L Globulin 2.0 Albumin/Globulin Ratio 1.4 Blood Type Antibody Screen Crossmatch [facility] Medical History Postmenopausal bleeding ASCUS with positive high risk HPV Sleep apnea 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 Acute GI bleeding, present on admission and improving. CT abd consistent with gastroenteritis. EGD and colonoscopy negative. 2. Acute blood loss anemia, present on admission and active. 3. Obstructive sleep apnea, present on admission stable. 4. Sebastien's thyroiditis, present on admission and stable. 5. Bicuspid aortic valve with systolic murmur, present on admission and stable. Plan: -give 1 unit PRBC -check CRP, ESR and calprotectin for possible IBD -patient ate caramel apple which may have harbored bacteria causing gastroenteritis. -monitor Hgb Dispo: Home on 03/22 if Hgb stable and no further rectal bleeding. Quality VTE Deep Vein Thrombosis/Pulmonary Embolism Present on Admission: No
[2024-03-21 15:25] LABS: Hemoglobin 8.4 g/dL (12.0-16.0)
[2024-03-21 15:48] LABS: Erythrocyte Sedimentation Rate 33 MM/HR (0-20)
[2024-03-21 18:00] LABS: Hemoglobin 8.3 g/dL (12.0-16.0)
[2024-03-22 00:37] LABS: Hemoglobin 7.9 g/dL (12.0-16.0)
[2024-03-22 04:25] VITALS: BP 119/45; PULSE 69; RESP 16; TEMP 36.6; O2SAT 98
[2024-03-22 05:24] LABS: Add Manual Diff / Slide Review NO; Basophils Absolute Auto 0 /uL (0-100); Basophils Percent Auto 0.7 % (0-2); Eosinophils Absolute Auto 100 /uL (0-450); Hematocrit 22.7 % (36-46); Lymphocytes Absolute Auto 1600 /uL (1100-4500); Lymphocytes Percent Auto 34.1 % (25-40); Mean Corpuscular HGB Conc 35.1 % (30-36); Mean Corpuscular Hemoglobin 28.7 PG (26-34); Mean Corpuscular Volume 81.7 fL (80-100); Monocytes Absolute Auto 400 /uL (0-900); Monocytes Percent Auto 9.2 % (3-14); Neutrophils Absolute Auto 2500 /uL (1500-7000); Platelet Count 182 X10^3/uL (150-400); Red Blood Cell Count 2.78 X10^6/uL (4.0-5.2); Red Cell Distribution Width 13.8 % (11.6-14.8); White Blood Cell Count 4.7 X10^3/uL (4.5-11.0)
[2024-03-22 05:39] LABS: BUN Creatinine Ratio 7.1 (6-22); Blood Urea Nitrogen 3 mg/dL (7-17); Calcium 8.1 mg/dL (8.4-10.2); Carbon Dioxide 29 mmol/L (22-32); Chloride 109 mmol/L (98-107); Estimated Glomerular Filt Rate > 60 mL/min (>60); Glucose 99 mg/dL (70-100); HEMOLYSIS < 15 (0-50); Potassium 3.3 mmol/L (3.4-5.1); Sodium 139 mmol/L (137-145)
[2024-03-22 05:42] LABS: Magnesium 1.9 mg/dL (1.6-2.3)
[2024-03-22] MEDS: LIOTHYRONINE 5 MCG TABLET 15 MCG PO (06:00)
[2024-03-22] MEDS: THYROID, PORK 30 MG TABLET 135 MG PO (06:00)
[2024-03-22 08:00] VITALS: BP 151/81; PULSE 78; RESP 16; TEMP 36.3; O2SAT 98
[2024-03-22] MEDS: PANTOPRAZOLE 40 MG VIAL IV (08:33)
[2024-03-22] MEDS: POTASSIUM CHLORIDE 20 MEQ TAB 40 MEQ PO (08:33)
--- NOTE | 2024-03-22 09:06 | PM.DS.1 ---
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 Reported feeling dizzy and dehydrated. Denies any nausea, vomiting, fever, abdominal pain or dysuria. She was using ibuprofen in the last several days for low back pain and reports some heartburn in the past. Denies any colonoscopy and EGD in the past but scheduled for colonoscopy in June. Laboratory shows WBC 8.6, initial H&H 10.4/30 and 2 hours later 8.7/25, platelets 279, INR 1.1, glucose 132, calcium 8.4, LFT normal. Recent pelvic ultrasound shows leiomyomatosis uterus. Surgery was consulted over the phone and recommended liquid diet and will see the patient in the morning. Updates: She was never had rectal bleeding before. She denies abdominal pain. Her bleeding stopped overnight. She did use ibuprofen fairly heavily the last 2 days for her back but this is very uncommon practice for her. No nausea or hematemesis. She was scheduled for her 1st colonoscopy later this year. She was family history of colon polyps. No history of inflammatory bowel disease. She denies any chest pain, shortness and breath. Hemoglobin has remained stable overnight. Discharge Providers Provider Date of admission: 03/20/24 14:41 Discharge Date: 03/22/24 Primary care physician: Loida Briceno Consults: 03/19/24 01:44 Consult to General Surgery Stat Comment: Consulting Provider: Adri Gonzalez Reason for consultation: Bright red blood per rectum Has provider been notified: Yes Discharge provider: Geovani Toledo DO Summary Hospital Course Discharge Diagnosis: 1. Acute GI bleeding, present on admission and improving. CT abd consistent with gastroenteritis. EGD and colonoscopy negative. 2. Acute blood loss anemia, present on admission and active. S/p 1 unit PRBC. 3. Obstructive sleep apnea, present on admission stable. 4. Sebastien's thyroiditis, present on admission and stable. 5. Bicuspid aortic valve with systolic murmur, present on admission and stable. Hospital Course: Admitted for acute bloody diarrhea. Had eaten a caramel apple at the carnival [address] abd showed fluid-filled loops of bowel and small bowel thickening which suggested gastroenteritis. CRP negative. Underwent EGD and colonoscopy which was both normal. Her symtpoms improved and her diarrhea stopped. Blood counts were stable so she was discharged home. Exam Vital Signs (past 8 hours): - 03/22/24 04:25 03/22/24 08:00 Temperature 97.8 F 97.4 F L Pulse Rate 69 78 Respiratory Rate 16 16 Blood Pressure 119/45 L 151/81 H Pulse Oximetry 98 98 Oxygen Flow Rate 0 Oxygen Delivery Method Room Air Oxygen Flow Rate 0 Narrative Exam Narrative: NAD, alert and oriented. Fluent speech. Lungs are clear, normal rate and effort. Heart is regular, 3/6 systolic murmur, and no gallop or rub. Abdomen is soft, non distended. Extremities are free of edema. Objective Labs 03/22/24 04:45 03/22/24 04:45 Labs: Laboratory Results - last 24 hr 03/19/24 03/21/24 03/21/24 19:40 04:59 12:25 WBC RBC Hgb Hct MCV MCH MCHC RDW Plt Count Neut % (Auto) Lymph % (Auto) [place] % (Auto) Eos % (Auto) Baso % (Auto) Neut # (Auto) Lymph # (Auto) [place] # (Auto) Eos # (Auto) Baso # (Auto) ESR Sodium Potassium Chloride Carbon Dioxide BUN Creatinine Estimated GFR BUN/Creatinine Ratio Glucose Calcium Magnesium 1.9 C-Reactive Protein < 0.5 Blood Type A Negative Antibody Screen Negative Crossmatch See Detail 03/21/24 03/21/24 03/22/24 13:10 17:50 00:20 WBC RBC Hgb 8.4 L 8.3 L 7.9 L Hct MCV MCH MCHC RDW Plt Count Neut % (Auto) Lymph % (Auto) [place] % (Auto) Eos % (Auto) Baso % (Auto) Neut # (Auto) Lymph # (Auto) [place] # (Auto) Eos # (Auto) Baso # (Auto) ESR 33 H Sodium Potassium Chloride Carbon Dioxide BUN Creatinine Estimated GFR BUN/Creatinine Ratio Glucose Calcium Magnesium C-Reactive Protein Blood Type Antibody Screen Crossmatch 03/22/24 04:45 WBC 4.7 RBC 2.78 L Hgb 8.0 L Hct 22.7 L MCV 81.7 MCH 28.7 MCHC 35.1 RDW 13.8 Plt Count 182 Neut % (Auto) 53.0 Lymph % (Auto) 34.1 [place] % (Auto) 9.2 Eos % (Auto) 3.0 Baso % (Auto) 0.7 Neut # (Auto) 2500 Lymph # (Auto) 1600 [place] # (Auto) 400 Eos # (Auto) 100 Baso # (Auto) 0 ESR Sodium 139 Potassium 3.3 L Chloride 109 H Carbon Dioxide 29 BUN 3 L Creatinine 0.42 L Estimated GFR > 60 BUN/Creatinine Ratio 7.1 Glucose 99 Calcium 8.1 L Magnesium 1.9 C-Reactive Protein Blood Type Antibody Screen Crossmatch [facility] Medical History Postmenopausal bleeding ASCUS with positive high risk HPV Sleep apnea 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 This was likely from a hemorrhagic gastroenteritis based on your scans, and that no source was found on EGD or colonoscopy. Please follow-up with your PCP. Discharge orders & Medications Prescriptions: Continued thyroid (pork) [[place] Thyroid] 120 mg tablet 120 mg PO DAILY thyroid (pork) [[place] Thyroid] 15 mg tablet 15 mg PO DAILY progesterone micronized 100 mg capsule 100 mg PO QAM Rx Instructions: off 7 days; repeat cycle estradiol [[place]] 0.0375 mg/24 hr patch semiweekly 1 patch transdermal 2XW Rx Instructions: apply 1 patch for 3 days alternating with 1 patch for 4 days each week for 3 wks per 4-wk cycle melatonin 3 mg/4 mL drops 0.5 mg PO BEDTIME PRN (Reason: insomnia) liothyronine 5 mcg tablet 15 mcg PO DAILY semaglutide 1 mg/dose (2 mg/1.5 mL) pen injector 1 mg SUBCUT ONCE Rx Instructions: 0.5ml on Follow up/Referrals: Loida Briceno ND [Primary Care Provider] - 1 Week Visit Report/Discharge Packet Stand Alone Forms: Patient Portal/API, Stroke Signs & Symptoms Discharge Data Primary Care Provider: Loida Briceno VTE Deep Vein Thrombosis/Pulmonary Embolism Present on Admission: No
--- NOTE | 2024-03-22 09:30 | CM.DPC ---
DCP Cont. Reviewed EMR and team rounds for status updates. Pt has been medically cleared for home discharge today, she has friends to transport her. No further DCP needs identified at this time.
--- NOTE | 2024-03-22 09:52 | PC.NURSE ---
Pt is dressed and ready for discharge home. IV's have been removed. Went over d/c instructions with Pt-discussed d/c meds, time of last dose, reviewed stroke education, reminded Pt to contact her MD or come to the ER if bleeding re-occurs and to make an appt to follow up with her MD in 1 week. Pt denied further questions and was taken out via w/c by CLINICAL LAB SCIENTIST to POV with all belongings.
== END 2024-03-22 09:57 | disposition home or self-care (01) | DRG 392 ==
LOC: ED 03-19 01:45 → AC 03-19 01:50
PROVIDERS: Hospitalist; Student in an Organized Health Care Education/Training Program; Surgery; Admitting Provider Internal Medicine; Emergency Provider Emergency Medicine; PCP Massage Therapist; Referring Provider Emergency Medicine; Visit Provider Internal Medicine
PROC: 0DJ08ZZ Inspection of Upper Intestinal Tract, Via Natural or Artificial Opening Endoscopic (ICD-10-PCS; CPT 43235; principal; 2024-03-20 14:00)
PROC: 0DJD8ZZ Inspection of Lower Intestinal Tract, Via Natural or Artificial Opening Endoscopic (ICD-10-PCS; CPT 45378; 2024-03-20 14:00)
DX: K52.89 Other specified noninfective gastroenteritis and colitis (principal); K92.2 Gastrointestinal hemorrhage, unspecified; D62 Acute posthemorrhagic anemia; G47.33 Obstructive sleep apnea (adult) (pediatric); E06.3 Autoimmune thyroiditis; I35.8 Other nonrheumatic aortic valve disorders; Z87.891 Personal history of nicotine dependence
CPT/HCPCS: 36415; 36430; 74177; 80048; 80053; 81015; 83735; 83993; 85014; 85018; 85025; 85610; 85651; 85730; 86140; 86850; 86900; 86901; 87507; 93005; 94660; 96374; 99284; G0378; P9016; C9113; J2704; Q9967

== ENCOUNTER → 2024-09-23 08:30 | Outpatient (CLI) | payer OTHER, SELFPAY ==
[2024-03-19 01:59] VITALS: BMI 31.4
[2024-09-23 09:29] LABS: Add Manual Diff / Slide Review NO; Basophils Absolute Auto 0 /uL (0-100); Basophils Percent Auto 0.9 % (0-2); Eosinophils Absolute Auto 100 /uL (0-450); Eosinophils Percent Auto 2.3 % (2-4); Hematocrit 38.5 % (36-46); Hemoglobin 12.9 g/dL (12.0-16.0); Lymphocytes Absolute Auto 1700 /uL (1100-4500); Mean Corpuscular HGB Conc 33.6 % (30-36); Mean Corpuscular Hemoglobin 27.9 PG (26-34); Monocytes Absolute Auto 400 /uL (0-900); Monocytes Percent Auto 7.5 % (3-14); Neutrophils Absolute Auto 3000 /uL (1500-7000); Neutrophils Percent Auto 56.3 % (50-75); Platelet Count 269 X10^3/uL (150-400); Red Blood Cell Count 4.64 X10^6/uL (4.0-5.2); Red Cell Distribution Width 15.2 % (11.6-14.8); White Blood Cell Count 5.3 X10^3/uL (4.5-11.0)
[2024-09-23 09:35] LABS: Hemoglobin A1C% w Est Avg Glu 4.9 % (4.0-6.0)
[2024-09-23 09:43] LABS: Alanine Aminotransferase 28 IU/L (<35); Albumin 4.1 g/dL (3.5-5.0); Albumin Globulin Ratio 1.4 (1.0-2.8); Alkaline Phosphatase 77 U/L (38-126); Aspartate Aminotransferase 25 IU/L (14-36); BUN Creatinine Ratio 30.9 (6-22); Bilirubin Total 0.5 mg/dL (0.2-1.3); Blood Urea Nitrogen 17 mg/dL (7-17); Calcium 9.7 mg/dL (8.4-10.2); Carbon Dioxide 25 mmol/L (22-32); Chloride 106 mmol/L (98-107); Cholesterol 204 mg/dL (140-199); Estimated Glomerular Filt Rate > 60 mL/min (>60); Glucose 97 mg/dL (70-100); HDL Cholesterol 98 mg/dL (40-60); HEMOLYSIS < 15 (0-50); LDL Cholesterol Calculated 96 mg/dL (<100); Magnesium 1.8 mg/dL (1.6-2.3); Potassium 4.6 mmol/L (3.4-5.1); Sodium 136 mmol/L (137-145); Total Protein 7.1 g/dL (6.3-8.2); Triglycerides 52 mg/dL (35-150)
[2024-09-23 10:11] LABS: TSH w/ Reflex to FT4 < 0.02 uIU/mL (0.47-4.68)
[2024-09-23 18:41] LABS: Free T4, Direct Thyroxine 0.68 ng/dL (0.78-2.19)
== END ==
PROVIDERS: PCP Massage Therapist; Referring Provider Internal Medicine Cardiovascular Disease; Visit Provider Internal Medicine Cardiovascular Disease
DX: G47.33 Obstructive sleep apnea (adult) (pediatric) (principal); R73.03 Prediabetes; E78.5 Hyperlipidemia, unspecified
CPT/HCPCS: 36415; 80053; 80061; 83036; 83735; 84439; 84443; 85025

== ENCOUNTER → 2024-10-23 08:49 | Outpatient (CLI) | payer OTHER, SELFPAY ==
[2024-03-19 01:59] VITALS: BMI 31.4
--- NOTE | 2024-10-23 08:53 | DI.RAD.S_ITS ---
PROCEDURE: FL SMALL BOWEL FOLLOW THROUGH INDICATIONS: HISTORY OF GI BLEED COMPARISON: None. FINDINGS: KUB: Preprocedural housekeeping director film demonstrates a normal bowel gas pattern. No suspicious abdominal calcifications. Visualized solid organ contours appear normal. No suspicious bony abnormalities. Small bowel: There is normal transit time of barium through the small bowel. Small bowel loops are of normal caliber throughout. Mucosal folds are smooth and of normal thickness. No strictures, intraluminal masses, or extrinsic mass effects are noted. The terminal ileum is identified, and is normal in morphology. Contrast passed into the small bowel 1 hours after administration. IMPRESSION: Normal small-bowel follow-through. No evidence of stricture. Dictated by: Brett Oliveira M.D. on 10/23/2024 at 13:05 Approved by: Brett Oliveira M.D. on 10/23/2024 at 13:05
== END ==
PROVIDERS: PCP Massage Therapist; Referring Provider Physician Assistant; Visit Provider Physician Assistant
DX: Z87.19 Personal history of other diseases of the digestive system (principal); Q23.81 Bicuspid aortic valve; Z09 Encounter for follow-up examination after completed treatment for conditions other than malignant neoplasm
CPT/HCPCS: 74250

== ENCOUNTER → 2024-11-30 13:34 | Outpatient (CLI) | payer OTHER, SELFPAY ==
[2024-03-19 01:59] VITALS: BMI 31.4
--- NOTE | 2024-11-30 13:37 | DI.ECHO.S_ITS ---
[facility] : : [id number] : : [facility] : : [place], : : [place] [address] : : Phone: [phone] Echocardiogram Report + + :Name: GABRIELLE WANG Study Date: 11/30/2024 Height: 66 in : :[facility] ReadingLocation: Weight: 200 lb : : Gender: Female BSA: 2.0 m2 : :: 1970 Age: 54 yrs BP: 135/96 mmHg: :Reason For Study: BICUSPID AORTIC VALVE : :Ordering Physician: VANESSA, : :KAMLA Dunlap Performed By: Israel Bonner : :Referring: KAMLA LAMA : + + Interpretation Summary The ejection fraction is estimated to be 60-65%. Diastolic parameters suggest probable normal left ventricular diastolic function and normal filling pressures. The left atrium is mildly dilated. The right ventricle is normal in size and function. There is moderate aortic stenosis. There is mild aortic regurgitation. Pulmonary artery pressures cannot be estimated because of the lack of a measurable TR jet velocity but the IVC suggests a CVP of around 8 mmHg. Compared to the prior study 12/09/2023, the aortic valve gradient has increased. Procedure: A two-dimensional transthoracic echocardiogram with color flow and Doppler was performed. The study quality was technically good. Comparison is made with the echocardiogram of 12/09/2023. The patient was in normal sinus rhythm during the exam. Left Ventricle: The left ventricle is normal in size. There is normal left ventricular wall thickness. There is no ventricular septal defect visualized. The ejection fraction is estimated to be 60-65%. There are no focal wall motion abnormalities. Diastolic parameters suggest probable normal left ventricular diastolic function and normal filling pressures. Right Ventricle: The right ventricle is normal in size and function. Atria: The left atrium is mildly dilated. Right atrial size is normal. There is no Doppler evidence for an interatrial shunt. Mitral Valve: The mitral valve is normal in structure and function. There is trace mitral regurgitation. Aortic Valve: The aortic valve is bicuspid. The aortic valve is moderately calcified. There is moderate aortic stenosis. The peak aortic velocity is 3.95 m/sec. The aortic valve mean gradient is 36 mmHg. The calculated aortic valve area is 1.0 cm2. There is mild aortic regurgitation. Tricuspid Valve: The tricuspid valve leaflets are thin and pliable. There is trace tricuspid regurgitation. Pulmonary artery pressures cannot be estimated because of the lack of a measurable TR jet velocity but the IVC suggests a CVP of around 8 mmHg. Pulmonic Valve: The pulmonic valve leaflets are thin and pliable; valve motion is normal. There is no pulmonic valvular regurgitation. Great Vessels: The aortic root is normal size. The dimensions of the ascending aorta are normal. The pulmonary artery is normal size. The IVC is dilated (diameter is greater than 2.1 cm) yet it collapses greater than 50% with a sniff. This suggests a right atrial pressure of 8 mm Hg. Pericardium/ Pleura There is no pericardial effusion. There is no pleural effusion. MMode/2D Measurements & Calculations LVIDd: 5.4 cm AoV Openin.83 cm LVIDs: 2.9 cm LVOT diam: 2.0 cm IVSd: 1.0 cm Ao root diam: 2.9 cm LVPWd: 0.92 cm asc Aorta Diam: 3.4 cm LV mishra. diameter/BSA (cm/m^2): 2.7 LV sys. diameter/BSA (cm/m^2): 1.4 FS: 46.3 % EPSS: 0.52 cm LA A2 area: 25.7 cm2 RA long axis: 4.7 cm LA A4 area: 24.1 cm2 RA area: 15.7 cm2 LA length (vol): 6.1 cm RA vol: 44.8 ml LA vol: 86.2 ml RA : 22.4 ml/m2 LA vol index: 43.1 ml/m2 RVD1 (basal): 3.6 cm IVC diam: 2.2 cm RVD2 (mid): 2.6 cm TAPSE: 2.9 cm Doppler Measurements & Calculations Ao V2 max: 395.4 cm/sec LVOT Max Aries: 141.2 cm/sec Ao V2 mean: 266.9 cm/sec LV V1 max P.0 mmHg Ao V2 VTI: 99.6 cm LV V1 VTI: 33.6 cm Ao max P.5 mmHg Ao mean P.3 mmHg RACHELL(I,D): 1.0 cm2 AI P1/2t: 405.3 msec RACHELL(V,D): 1.1 cm2 AI dec slope: 368.3 cm/sec2 RACHELL indexed to BSA (cm^2/m^2): 0.51 sev ratio: 0.34 MV E max aries: 65.8 cm/sec MV dec time: 0.22 sec MV A max aries: 84.1 cm/sec MV E/A: 0.78 Med Peak E' Aries: 7.1 cm/sec E/E' med: 9.3 Lat Peak E' Aries: 10.0 cm/sec E/E' lat: 6.6 E/e' average: 8.0 TR max aries: 287.7 cm/sec PA V2 max: 74.4 cm/sec TR max P.1 mmHg PA V2 mean: 54.2 cm/sec PA mean P.3 mmHg PA pr(Accel): 0.22 mmHg SV(LVOT): 101.6 ml Reading Physician:03:57 PM
== END ==
PROVIDERS: PCP Massage Therapist; Referring Provider Internal Medicine Cardiovascular Disease; Visit Provider Internal Medicine Cardiovascular Disease
DX: Q23.81 Bicuspid aortic valve (principal); I35.2 Nonrheumatic aortic (valve) stenosis with insufficiency
CPT/HCPCS: 93306

== ENCOUNTER → 2025-04-17 07:41 | Outpatient (CLI) | payer OTHER, SELFPAY ==
[2024-03-19 01:59] VITALS: BMI 31.4
[2025-04-17 09:21] LABS: Free T4, Direct Thyroxine 0.76 ng/dL (0.78-2.19)
[2025-04-17 09:36] LABS: Thyroid Stimulating Hormone < 0.015 uIU/mL (0.47-4.68)
== END ==
PROVIDERS: PCP Massage Therapist; Referring Provider Massage Therapist; Visit Provider Internal Medicine Cardiovascular Disease
DX: E03.9 Hypothyroidism, unspecified (principal)
CPT/HCPCS: 36415; 84439; 84443